=== PATIENT | female | born 1970 | race Caucasian/White ===

== ENCOUNTER → 2017-04-28 | Outpatient (CLI) | payer BC ==
[~2017-04-28] MED LIST: ALBUTEROL0.09 MG/A2 INH; BENTYL10 MG PO; BLADDER MED; CHLORASEPTIC 1177 M1 MM; CLARITIN-D 10 M1 T24 PO; COLACE100 MG PO; DAYPRO600 M1 PO; DECADRON4 M1 PO; DURICEF500 MG PO; FLEXERIL10 MG PO; Fioricet 325 MG1 TAB PO; GABAPENTIN300 MG PO; HYDR12.5C PO; IRRITABLE BOWEL MED; MACROBID100 M1 PO; MEDROL DOSEPAK4 MG PO; NKHM; OXYCODONE5 MG PO; PREDNICOT10 MG PO; PREDNISONE10 MG PO; PROCTOFOAM-HC 11 FOA RC; PYRIDIUM200 MG PO; ROBAXIN500 MG PO; ROBAXIN750 MG PO; ROBITUSSIN AC 110 ML PO; SYNTHROID0.175 MG PO; TRAMADOL HCL50 MG PO; VICODIN 5/500 505 MG PO; VICODIN ES 7501 TAB PO; XIFAXAN550 MG PO; ZITHROMAX Z PA250 MG PO; ZOFRAN ODT4 MG SL
[2017-04-28 13:48] LABS: BASO # 0.1 10*3/uL (0.0-0.1); BASO % 0.8 % (0.0-1.0); EOS # 0.1 10*3/uL (0.0-0.4); EOS % 1.5 % (1.0-4.0); HEMATOCRIT 37.9 % (37.0-47.0); HEMOGLOBIN 12.3 g/dl (12.0-16.0); LYMPH # 2.8 10*3/uL (1.3-4.4); LYMPH % 29.7 % (27.0-41.0); MEAN CELL VOLUME 88.8 fl (81.0-99.0); MEAN CORPUSCULAR HGB 28.8 pg (27.0-31.0); MEAN CORPUSCULAR HGB CONC 32.5 g/dl (33.0-37.0); MEAN PLATELET VOLUME 10.5 fl (9.6-12.3); MONO # 0.7 10*3/uL (0.1-1.0); MONO % 7.9 % (3.0-9.0); NEUT # 5.5 10*3/uL (2.3-7.9); NEUT % 58.9 % (47.0-73.0); PLATELET COUNT AUTOMATED 234 10*3/uL (130-400); RED BLOOD COUNT 4.27 10*6/uL (4.10-5.10); RED CELL DISTRI WIDTH 17.2 % (0-14.5); WHITE BLOOD COUNT 9.3 10*3/uL (4.8-10.8)
[2017-04-28 14:17] LABS: CREATININE 1.18 mg/dL (0.55-1.02); POTASSIUM 4.3 mmol/L (3.5-5.1)
[2017-04-28 14:27] LABS: THYROID STIM HORMONE (HS) 16.8 uIU/ml (0.358-4.75); TOTAL PROTEIN 8.2 gm/dL (6.4-8.2)
== END | disposition home or self-care (01) ==
LOC: LAB 13:04
PROVIDERS: Nurse Practitioner Family
DX: I10 Essential (primary) hypertension (principal); E03.9 Hypothyroidism, unspecified

== ENCOUNTER 2017-09-01 10:19 | Emergency (ER) | payer BC ==
[~2017-09-01] VITALS: Wt 91.2 kg
[2017-09-01] MEDS ORDERED: LISINOPRIL20 MG PO (10:22)
[2017-09-01] MEDS ORDERED: Motrin,Rufen800 MG PO (13:23)
== END 2017-09-01 13:27 | disposition home or self-care (01) ==
LOC: ED 10:19
DX: S93.402A Sprain of unspecified ligament of left ankle, initial encounter (principal); F17.200 Nicotine dependence, unspecified, uncomplicated; Z79.899 Other long term (current) drug therapy; W01.0XXA Fall on same level from slipping, tripping and stumbling without subsequent striking against object, initial encounter; Y93.01 Activity, walking, marching and hiking; Y92.89 Other specified places as the place of occurrence of the external cause; Y99.8 Other external cause status

== ENCOUNTER 2017-11-27 08:43 | Inpatient (IN) | payer BC ==
[~2017-11-27] VITALS: Ht 160 cm; Wt 92.0 kg
[2017-11-27] VITALS (7 sets, daily range): BP systolic 123–151; BP diastolic 73–108
--- NOTE | ~2017-11-27 | PR ---
[place], [place] PROGRESS NOTE NAME: CEDRICK CORNEJO [facility] #: [id number] UNIT #: [id number] ROOM: 411 DOCTOR: GUILLERMINA GREEN MD,DHARMESH BIRTHDATE: [birth year] DOS: 11/29/2017 SUBJECTIVE: She has been comfortably sitting on the chair this morning. The shortness of breath and the cough and wheezing all remains persistent with partial reduction. Denies symptoms of chest pain or hemoptysis. Shortness of breath was still noted with minimal exertion, but decreased at rest. ____ the patient with tachypnea, which was noted previously seemed to be decreased on today's assessment. She denies symptoms of nausea, vomiting, or diarrhea. She was noted with some area of early skin pressure with the use of the BiPAP at the bridge of the nose. The patient denies symptoms of abdominal pain, nausea, vomiting, diarrhea or abdominal pain. Musculoskeletal symptoms without any acute deformities. Skin was noted without any lesions or rashes. Remaining systems were reviewed. They were noted all negative. OBJECTIVE: VITAL SIGNS: Normal temperature, respiratory rate 20, heart rate 89-108, blood pressure 142/74 to 147/85. Intake for the patient is 1600, output is 2200, negative for fluid balance of 520 mL. Pulse ox saturation on 2 liters nasal cannula 98% saturation. HEENT: No acute change. NECK: Supple. CARDIOVASCULAR: S1, S2 is audible. LUNGS: Without any crackles. Expiratory wheezing noted in the lungs bilaterally. ABDOMEN: Soft with moderate obesity. Bowel sounds present. EXTREMITIES: Without any acute edema. MUSCULOSKELETAL: No acute deformities. SKIN: Without lesions or rashes. LABORATORY DATA: Labs assessment for the patient for today's visit. The blood culture of the patient showed no bacterial growth from admission. CBC this morning: WBC count elevated at 21.5, hemoglobin 10, hematocrit 33.2, platelet count 253,000. BMP of the patient's glucose 260. BUN and creatinine was normal. IMPRESSION: 1. The patient who has been currently noted with an acute exacerbation of chronic obstructive pulmonary disease. 2. Hyperglycemia secondary to corticosteroids. 3. Leukocytosis, multifactorial. 4. The patient with respiratory distress, noted to be better from previously. PLAN OF TREATMENT: The patient will be made n.p.o. past midnight for bronchoscopy that will be done tomorrow. In the meantime, continue the BiPAP, use of the nasal strip to prevent the necrosis of the skin because of the pressure from the BiPAP use. Other supportive therapy, plan of management and care plan. Additional treatment changes to be made based on progression of the [place], [place] PROGRESS NOTE NAME: CEDRICK CORNEJO UNIT #: [id number] ROOM: 411 DOCTOR: DHARMESH CLAY MD BIRTHDATE: [birth year] illness. The sliding scale insulin coverage has been ordered because of the hyperglycemia to be done for the patient as well. DHARMESH SARMIENTO MD CM:PNTRANS [id number] 1604 DHARMESH GREEN MD 11/29/17 1603 interface
--- NOTE | ~2017-11-27 | PR ---
[place], [place] PROGRESS NOTE NAME: CEDRICK CORNEJO UNIT #: [id number] ROOM: 411 DOCTOR: DHARMESH CLAY MD BIRTHDATE: [birth year] DOS: 11/30/2017 SUBJECTIVE: She was still noted with severe coughing with intermittent shortness of breath at rest and otherwise noted with minimal exertion, shortness of breath increases. Denies symptoms of chest pain or hemoptysis. Denies symptoms of nausea, vomiting, headache. General weakness, fatigue was noted. She is n.p.o. past midnight for bronchoscopy. Denies any edema or pain of the lower extremities. Remaining systems were reviewed. They were noted all negative. OBJECTIVE: VITAL SIGNS: For the patient this morning, normal temperature, respiratory rate 18-20, heart rate 77-101, blood pressure 114/78-127/69. Pulse oxygen saturation for the patient on 2 liters nasal cannula 96% saturation. HEENT: Head was atraumatic. Eye nonicterus. NECK: Supple and obese. Decreased posterior pharyngeal space, high tongue base. CARDIOVASCULAR: S1, S2 audible. LUNGS: Noted with diffuse reduction in breath sounds with expiratory wheezing without any crackles. ABDOMEN: Noted soft and obese. Bowel sounds present. EXTREMITIES: Without any acute edema. MUSCULOSKELETAL: Without any acute deformity. SKIN: No lesions or rashes. CENTRAL NERVOUS SYSTEM: Cranial nerves 2-12 intact. No focal deficit. LABORATORY DATA: BMP today, normal BUN and creatinine. CBC: WBC count 21.8, hemoglobin 10.5, hematocrit 34.3, platelet count 272,000. IMPRESSION: 1. The patient was noted with persistent ongoing acute exacerbation of chronic obstructive pulmonary disease/bronchial asthma as well suspected with the mucus impaction major airway. 2. History of chronic nicotine abuse. 3. History of obesity. 4. Possible consideration for sleep apnea disorder, current body habitus. PLAN OF MANAGEMENT: Proceed with bronchoscopy as already in progress. Any change in the treatment for the patient if necessary will be done after the bronchoscopy. In the meantime, no other change in treatment will be done. [place], [place] PROGRESS NOTE NAME: CEDRICK CORNEJO UNIT #: [id number] ROOM: 411 DOCTOR: AZIZ DHARMESH GREEN MD BIRTHDATE: [birth year] DHARMESH SARMIENTO MD CM:HIRAM 07 DHARMESH GREEN MD 11/30/178 interface
--- NOTE | ~2017-11-27 | PROC NOTE ---
[place], [place] PROCEDURE NOTE [id number] UN[facility] #: [id number] ROOM: 411 DOCTOR: GUILLERMINA GREEN MD,DHARMESH BIRTHDATE: [birth year] DOS: 11/30/2017 PROCEDURE: Fibrobronchoscopy. PREOPERATIVE DIAGNOSES: Persistent severe cough, wheezing, shortness of breath with maximal medical therapy. POSTOPERATIVE DIAGNOSES: Severe removal of the mucus impaction major airway, greater on the right than the left side. Finding of tracheobronchitis. No endobronchial obstructive lesions. PROCEDURE DESCRIPTION: Informed consent obtained with the patient, she was brought to the OR and placed in supine position. Conscious sedation was administered by the Anesthesia Department. After achieving appropriate sedation, airway introduced into the mouth. Bronchoscope advanced to the airway into laryngeal area. Epiglottis vocal cords were seen. Vocal cord noted yellowish in color moving symmetrically with movements. The bronchoscope advanced to the vocal cord into the tracheal lumen. The tracheal lumen noted with moderate amount of thick mucus secretion for the patient, which were present in the trachea, suctioned out. After that, the garrett was seen. Right upper, right middle, right lower, left upper, lingula and left lower lobe bronchi were all examined. The patient was noted with a large amount of plugs of the mucus, which were noted almost all its subsegment to right lung and then in the left lower lobe. The mucous plug was cleared off with the help of normal saline wash and sent for culture. Postoperative findings were discussed with the patient and has been in the recovery room. No change in treatment at this time, will be otherwise necessary. Cultures were sent to the lab. The procedure well tolerated by the patient without difficulty. DHARMESH SARMIENTO MD CM:PROCNOTE:PROCEDURE NOTE [id number] DHARMESH GREEN MD
--- NOTE | ~2017-11-27 | CON ---
[place], [place] REPORT OF [facility]ULTATION [id number] UN[facility] #: [id number] ROOM: 411 DOCTOR: LAY ADAM DO BIRTHDATE: [birth year] DOS: 11/27/2017 REASON FOR CONSULTATION: Severe sepsis, pneumonitis in a patient with COPD exacerbation and acute respiratory failure with hypoxia. CONSULTATION REQUESTED BY: Hospitalist services. HISTORY OF PRESENT ILLNESS: This is a 47-year-old white female who presented to the ER with worsening shortness of breath and coughing. She states that her symptoms really began to worsen on Thursday and have progressed to the severe state that she is currently in so that she had to seek emergency medical treatment today. She states that she has had symptoms of this nature on and off since April, though she notes that she has not needed hospitalization for these symptoms in the past. She notes her coughing has been so extreme at times that it has caused her to have posttussive emesis. She notes that exertion worsens her respiratory symptoms making her more short of breath and have more severe cough, but she notes that her shortness of breath has persisted at rest now as well. She also notes symptoms of chills, muscle aches and headaches. She is a long time smoker since she was 11 years old and states she has smoked in the range of 3 packs to half pack per day since the age of 11. REVIEW OF SYSTEMS: CONSTITUTIONAL: Reports chills. Denies fevers, denies weight change. HEENT: Denies vision change. Denies hearing loss, denies nasal discharge. Denies ear drainage. Denies blurred vision. Denies eye pain. Denies mouth pain. Denies nose pain. Denies throat pain, denies dysphagia. CARDIOVASCULAR: Reports chest pain with coughing and deep breathing. Denies palpitations. Denies lower extremity edema. Denies diaphoresis. RESPIRATORY: Reports shortness of breath, reports cough. Reports wheezing. Reports dyspnea on exertion. Denies hemoptysis. Denies sputum production. ABDOMEN: Reports nausea, reports vomiting. Denies abdominal pain, denies diarrhea, denies constipation. Denies melena, denies hematochezia. Denies any hematemesis. GENITOURINARY: Denies dysuria, denies hematuria, denies increased frequency, denies urgency. NEUROLOGIC: Denies lightheadedness. Denies dizziness, denies confusion. PSYCHIATRIC: Denies depression, denies anxiety. Denies substance abuse. ENDOCRINE: Denies polydipsia, denies heat intolerance. Denies cold intolerance. SKIN: Denies new rashes, lesions or ulcerations. PAST MEDICAL HISTORY: 1. COPD. 2. Diverticulosis. 3. Hemorrhoids. 4. History of thyroid cancer. 5. Essential hypertension. 6. Migraine headaches. PAST SURGICAL HISTORY: [place], [place] REPORT OF CONSULTATION NAME: CEDRICK CORNEJO UNIT #: [id number] ROOM: [facility] DOCTOR: LAY ADAM DO BIRTHDATE: [birth year] 1. History of adenoidectomy and tonsillectomy. 2. History of sinus surgery. 3. History of bilateral cataract extraction. 4. History of thyroidectomy. 5. History of tubal ligation. SOCIAL HISTORY: The patient is and lives at home. She has 2 children. She denies illicit drug use. Rarely consumes alcohol. She is a 3 to currently half pack a day smoker since the age of 11. FAMILY HISTORY: Father . He had history of hypertension, coronary artery disease, atrial fibrillation, stroke and congestive heart failure. Mother has history of CAD, coronary artery disease and diabetes. HOME MEDICATIONS: Synthroid 250 mcg p.o. daily and lisinopril 20 mg p.o. daily. DRUG ALLERGIES: No known drug allergies. PHYSICAL EXAMINATION: GENERAL: This is a 47-year-old white female currently in respiratory distress, seated in bed. She is 5 feet 3 inches tall, weighs 92 kilograms with a BMI of 35.9. She is responsive and cooperative, alert and awake. HEAD: Normocephalic, atraumatic. EYES: Pupils equal and round and reactive to light. No lesions, no ulcerations, no drainage, nonicteric. ENT: No lesions, no scars, no masses. Nasal mucosa moist. Oropharynx clear. Oral mucosa moist. NECK: Without lesions, without masses, no ulcerations. Trachea is midline. Supple. There is mild cervical lymphadenopathy along the right cervical chain that is tender to palpation. HEART: Tachycardia with a regular rhythm. No gallop, no murmur, no edema in the lower extremities. RESPIRATORY: Shortness of breath at rest and dyspnea on exertion. Harsh cough with some production of sputum, moderate respiratory distress. LUNGS: Diminished and diffusely wheezy bilaterally. No rales or rhonchi appreciated. ABDOMEN: Soft, nontender, nondistended, positive bowel sounds. EXTREMITIES: No clubbing, no cyanosis, no erythema, no edema. NEUROLOGIC: Grossly intact without focal neuro deficits. Sensation grossly intact. PSYCHIATRIC: Good historian. Fair judgment and insight. Good recent and remote memory, exhibits normal mood and affect at this time. SKIN: Warm and dry, no rashes, no ulcerations, no lesions, no tightening. LABORATORY AND DIAGNOSTIC DATA: CBC shows white blood cell count of 9, hemoglobin 12.4, hematocrit 38.6, platelet count 235. CMP shows sodium 137, potassium 3.7, bicarbonate 25, BUN 9, creatinine 1.05, glucose 145, calcium 8 with an albumin of 3.5 and total protein 7.8, total bilirubin 0.2, AST 29, ALT 43, alkaline phosphatase 111. Initial lactic acid was 2.4, elevated. Initial troponin is negative. Blood gases were obtained and show pH of 7.417, slightly [place], [place] REPORT OF CONSULTATION NAME: CEDRICK CORNEJO UNIT #: [id number] ROOM: 411 DOCTOR: LAY ADAM DO BIRTHDATE: [birth year] normal with a pCO2 of 34.2 slightly low, and a pO2 of 71.5 low. Chest x-ray in the ER shows normal size cardiomediastinal silhouette, no consolidation or atelectasis in either lung. No pleural effusions, no pneumothorax and no acute osseous process. Chest CTA was done and shows no pulmonary emboli. There is patchy ground glass nodules versus infiltrate in the right upper lobe, possibly representing pneumonia. IMPRESSION: 1. Acute community-acquired pneumonia, possibly of Gram-negative origin. 2. Acute exacerbation of chronic obstructive pulmonary disease. 3. Acute respiratory failure with hypoxemia. 4. Severe sepsis due to the community-acquired pneumonia. 5. Hypothyroidism. 6. Essential hypertension. 7. Morbid obesity. PLAN OF MANAGEMENT: Continue the use of IV Solu-Medrol 60 mg q.8 hours and IV antibiotics with Rocephin and azithromycin for treatment of community-acquired pneumonia and COPD exacerbation. Continue DuoNeb breathing treatments. Due to the patient's acute respiratory failure with hypoxemia, we will start the patient on BiPAP with IPAP of 12 and an EPAP of 8 and maintain oxygen saturation greater than 92%. The patient will benefit from a bronchoscopy and we will schedule this for Thursday. The patient will need to be n.p.o. after midnight Thursday night into Thursday. Thank you for allowing us to participate in the care of this patient. LAY ADAM DO DHARMESH SARMIENTO MD CM:CONSTR:REPORT OF CONSULTATION 1534 11/27/17 1755 interface
--- NOTE | ~2017-11-27 | PR ---
[place], [place] PROGRESS NOTE NAME: CEDRICK CORNEJO UNIT #: [id number] ROOM: 411 DOCTOR: LAY ADAM DO BIRTHDATE: [birth year] DOS: 12/02/2017 SUBJECTIVE: The patient seen and examined today. She is sitting up at bedside. She notes that she is feeling much, much better and has been ambulating in the halls with much less dyspnea on exertion. She notes that her cough is nearly completely resolved. OBJECTIVE: VITAL SIGNS: At the time of exam, temperature 97.9, pulse 72, respirations 20, blood pressure 154/90. Bedside pulse ox 95% on room air. HEENT: Head is normocephalic, atraumatic. Eyes are nonicteric. NECK: Supple. Nontender. CARDIOVASCULAR: Regular rate and rhythm without any gallops, rubs or murmurs. LUNGS: Very faint expiratory wheeze in the upper lobes bilaterally. No rales or rhonchi. Good inspiratory effort. ABDOMEN: Soft, nontender, obese, bowel sounds present. EXTREMITIES: No edema, cyanosis, clubbing, or erythema noted. NEUROLOGIC: Grossly intact. No focal neuro deficits. Sensation grossly intact. LABORATORY AND DIAGNOSTIC DATA: Blood cultures are negative. Bronchial wash cultures show moderate gram-positive cocci in pairs and chains with few gram-negative bacilli. No fungal elements were seen and overall normal edwige. IMPRESSION: 1. Resolving acute exacerbation of chronic obstructive pulmonary disease with acute tracheobronchitis/pneumonitis. 2. Tobacco abuse. The patient has been counseled on the importance of tobacco cessation. 3. Chronic obesity. 4. Suspected obstructive sleep apnea. PLAN OF TREATMENT: Dr. Sarmiento feels the patient is suitable for discharge today from a pulmonary standpoint. Recommend discharge with prednisone taper and oral antibiotics to finish out a course for treatment of tracheobronchitis/pneumonitis. The patient should follow up with Dr. Sarmiento in his outpatient office within 1-2 weeks. She can be evaluated with a sleep study for possible obstructive sleep apnea and possible need for CPAP requirement at night. LAY ADAM DO [place], [place] PROGRESS NOTE NAME: CEDRICK CORNEJO UNIT #: [id number] ROOM: 411 DOCTOR: LAY ADAM DO BIRTHDATE: [birth year] DHARMESH SARMIENTO MD CM:PNHERNANDEZ [id number] LAY ADAM DO 12/02/17 1236 interface
--- NOTE | ~2017-11-27 | PR ---
[place], [place] PROGRESS NOTE NAME: CEDRICK CORNEJO [facility] #: [id number] UNIT #: [id number] ROOM: 411 DOCTOR: DHARMESH LCAY MD BIRTHDATE: [birth year] DOS: 12/02/2017 SUBJECTIVE: The patient noted comfortable at this time, resting comfortably on the bed with significant further improvement and resolution of the respiratory symptoms were noted at the present time. Coughing has improved significantly, wheezing and shortness of breath, was also improved markedly. OBJECTIVE: VITAL SIGNS: This morning, normal temperature, respiratory rate 20, heart 72, blood pressure is 160/87 to 154/90. The pulse oxygen saturation on 2 liters 100% saturation. HEENT: Chronic moderate obesity. NECK: Supple. CARDIOVASCULAR: S1, S2 audible. LUNGS: The patient was noted without any crackles, rhonchi or wheezing at this time. ABDOMEN: Soft and obese. EXTREMITIES: Without any acute edema. LABORATORY DATA: Cultures of the bronchial washing noted as light growth of yeast and normal edwige. IMPRESSION: 1. The patient with progressive improvement and resolution noted with acute hypoxic respiratory failure as well as acute exacerbation of chronic obstructive pulmonary disease. 2. History of nicotine abuse. 3. Chronic obesity with suspicion of obstructive sleep apnea disorder. PLAN OF TREATMENT: From the pulmonary standpoint, the patient would be considered for possible home discharge for the patient to be followed up in the office. She could receive the tapering dose of prednisone, oral antibiotics and other medical management for COPD as well. [place], [place] PROGRESS NOTE NAME: CEDRICK CORNEJO [facility] #: [id number] UNIT #: [id number] ROOM: 411 DOCTOR: DHARMESH CLAY MD BIRTHDATE: [birth year] DHARMESH SARMIENTO MD CM:HIRAM 1247 0029 DHARMESH GREEN MD 12/03/17 0028 interface
--- NOTE | ~2017-11-27 | PR ---
[place], [place] PROGRESS NOTE NAME: CEDRICK CORNEJO UNIT #: [id number] ROOM: 411 DOCTOR: DHARMESH CLAY MD BIRTHDATE: [birth year] DOS: 12/01/2017 PULMONARY PROGRESS NOTE SUBJECTIVE: The patient continues to show improvement in the respiratory symptoms. The coughing has been noted decreased, but not completely resolved. Shortness breath was still noted on exertion. Bronchoscopy done, a large amount of mucus impaction cleared from the endobronchial tree. The patient has not been noted symptoms of hemoptysis. OBJECTIVE: VITAL SIGNS: Showed normal temperature, respiratory rate 18, heart rate 81, and blood pressure 162/74. The pulse oxygen saturation on 1 liter nasal cannula was 95% saturation. HEENT: On examination, chronic obesity. Head was atraumatic. Eyes nonicterus. NECK: Supple. CARDIOVASCULAR: S1, S2 is audible. LUNGS: The patient was noted without any wheezing or crackles. ABDOMEN: Soft and nontender. Bowel sounds present. EXTREMITIES: Without any acute edema, clubbing, or cyanosis. CENTRAL NERVOUS SYSTEM: The patient noted nonfocal. LABORATORY DATA: Culture of the bronchial washing, preliminary source is normal edwige. ____ was noted as many white blood cells, epithelial cells, moderate gram-positive cocci in chains, and a few gram-negative bacilli. IMPRESSION: 1. Resolving acute exacerbation of chronic obstructive pulmonary disease, acute tracheobronchitis after the bronchoscopy this morning. 2. The patient with a history of past nicotine abuse. 3. Chronic obesity. 4. Suspected obstructive sleep apnea disorder. PLAN OF TREATMENT: The patient will be continued on bronchodilators and oxygen supplementation. Monitor culture results. Reduce the Solu-Medrol dose to 40 mg b.i.d. from today. Possible discharge tomorrow depends on the final culture results. Other supportive therapy, plan of management, and care. [place], [place] PROGRESS NOTE NAME: CEDRICK CORNEJO UNIT #: [id number] ROOM: 411 DOCTOR: DHARMESH CLAY MD BIRTHDATE: [birth year] DHARMESH SARMIENTO MD CM:PNTRANS 1302 DHARMESH GREEN MD 12/02/179 interface
--- NOTE | ~2017-11-27 | EKG ---
[place], [place] ELECTROCARDIOGRAM REPORT NAME: CEDRICK CORNEJO UNIT #: [id number] ROOM: 411 DOCTOR: GUILLERMINA GREEN MD,DHARMESH BIRTHDATE: [birth year] DOS: 11/29/2017 ELECTROCARDIOGRAM REPORT The echocardiogram shows evidence of sinus tachycardia, heart rate of 115 beats per minute. Resting electrocardiogram was noted normal. Nonspecific ST-T changes noted in leads II, III and aVF. DHARMESH SARMIENTO MD CM:EKGRPT:ELECTROCARDIOGRAM REPORT 1259 1307 DHARMESH GREEN MD
--- NOTE | ~2017-11-27 | PR ---
[place], [place] PROGRESS NOTE [id number] UNIT #: [id number] ROOM: 411 DOCTOR: GUILLERMINA GREEN MD,DHARMESH BIRTHDATE: [birth year] DOS: 11/28/2017 SUBJECTIVE: She was noted to have reduction of respiratory distress, has used the BiPAP only a short period of time, this morning using oxygen supplementation. Cough is still noted nonproductive, [id number]. Audible wheezing noted, decreased. Denies symptoms of chest pain, hemoptysis. Denies edema, pain of the lower extremity. Denies symptoms of nausea, vomiting, diarrhea or any abdominal pain. Denies symptoms of hematemesis or melena. Generally weak and fatigued was still noted. OBJECTIVE: VITAL SIGNS: For the patient, which was recorded showed the temperature noted normal, respiratory rate 20-22, heart rate 95-115, blood pressure 135/80-134/75, pulse oxygen saturation 3 liters nasal cannula 92% saturation. HEENT: Chronic obesity. NECK: Supple. Decreased posterior pharyngeal space. EYES: No icterus. Oral mucosa was moist. CARDIOVASCULAR: S1, S2 audible. LUNGS: The patient was noted with persistent reduced breath sounds of the lungs bilateral with diffuse expiratory wheezing, which were noted partially decreased from previous examination. There were no crackles. ABDOMEN: Soft, nontender. Bowel sounds present. EXTREMITIES: Without any acute edema. MUSCULOSKELETAL: Without any acute deformities. LABORATORY DATA: Chest x-ray shows nodular infiltration was noted in the lungs involving the right upper lung, predominantly. There was no significant lymphadenopathy. There was no evidence of pulmonary embolism with a CTA of the chest that was done yesterday. Lymph nodes are noted mildly enlarged, but does not appear to be pathological enlargement. CBC today, WBC count 18.3, hemoglobin 11.3, hematocrit 36.5, platelet count of 48,000, 96% segmented neutrophils. BMP, glucose 185, BUN normal, creatinine was normal. IMPRESSION: 1. The patient who has been currently noted with an ongoing acute severe respiratory distress secondary to possibility of acute pneumonia, which appeared to be nodular right lung with other etiology noninfectious, would be considered unless resolution occur with current medical management. 2. Leukocytosis, multifactorial secondary to corticosteroids. 3. Obstructive sleep apnea disorder. 4. Chronic obesity. 5. History of nicotine dependence. PLAN OF TREATMENT: Continue current antibiotics, bronchodilators, and oxygen supplementation. The dose of corticosteroids will be decreased to 40 mg q.8 hours today. Bronchoscopy planned, to be done on Thursday morning. The consent was discussed. Risk and benefit were discussed. The patient was agreeable for the procedure. N.p.o. past midnight status will be obtained tomorrow. Collect any sputum Gram stain culture. Continuation of the nicotine placement patches. Other supportive therapy, plan of management and care. Additional therapy. [place], [place] PROGRESS NOTE NAME: CEDRICK CORNEJO [facility] UNIT #: [id number] ROOM: 411 DOCTOR: GUILLERMINA GREEN MD,DHARMESH BIRTHDATE: [birth year] Treatment changes will be made based on the progression of the illness. DHARMESH SARMIENTO MD CM:PNTRANS 1146 1425 DHARMESH GREEN MD 11/28/17 1424 interface
--- NOTE | ~2017-11-27 | CON ---
[place], [place] REPORT OF CONSULTATION NAME: CEDRICK CORNEJO [facility] #: [id number] UNIT #: [id number] ROOM: 411 DOCTOR: DHARMESH CLAY MD BIRTHDATE: [birth year] DOS: 11/27/2017 PULMONARY CONSULTATION, EVALUATION, AND MANAGEMENT CONSULTATION REQUESTED BY: Hospitalist service. REASON FOR CONSULTATION: For assessment of current respiratory distress, cough, and others. HISTORY OF PRESENT ILLNESS: This is a 47-year-old female patient, who has been noted ongoing illness with increased respiratory symptom for the past several months at least 6 months. The patient started having increased shortness of breath, coughing, wheezing, and other symptoms. The symptoms have not been resolving. The patient has been taking previous home medications including fkwo-fys-revotev and other medication and failed to respond to the treatment. Symptoms had been described as severely worse that occurred from Thursday. The patient has been admitted to the hospital from the date of 11/27/2017. The patient denies any symptoms of hemoptysis. She does complain of pain with excessive cough. The cough has been noted without any sputum expectoration and appeared to be dry. She was noted with continuous wheezing, which was noted at rest with significant tachypnea noted even at rest. Minimal exertion has been resulting in increased shortness of breath. REVIEW OF SYSTEMS: Completed by the medical scientific officer. PAST MEDICAL HISTORY: Has been reported with 1. History of chronic obstructive pulmonary disease. 2. Chronic nicotine dependence. 3. Diverticulosis. 4. Moderate obesity. 5. History of thyroid cancer. 6. Essential hypertension. 7. History of obstructive sleep apnea disorder, treated with the CPAP. PAST SURGICAL HISTORY: Noted 1. T and A. 2. Sinus surgery. 3. Bilateral cataract extraction. 4. Thyroidectomy for the thyroid cancer. 5. Tubal ligation. SOCIAL HISTORY: She is , has 2 children. The patient was smoking heavily since teenager, 3 packs of cigarettes per day, currently trying to cut down the smoking of cigarettes, using the nicotine patches intermittently, and smoking. The patient taking of the patches at times. Denies any history of alcohol dependence. Denies any occupation-related exposure to any dust or chemicals. FAMILY HISTORY: Father , complications of CVA, coronary artery disease, and atrial fibrillation. Mother is living with history of coronary artery [place], [place] REPORT OF CONSULTATION NAME: CEDRICK CORNEJO UNIT #: [id number] ROOM: 411 DOCTOR: GUILLERMINA GREEN MD,DHARMESH BIRTHDATE: [birth year] disease and diabetes mellitus. HOME MEDICATIONS: Noted as use of 1. Synthroid 250 mcg daily. 2. Lisinopril 20 mg daily. DRUG ALLERGIES: Noted no known drug allergies. PHYSICAL EXAMINATION: GENERAL: This is a 47-year-old female noted with obvious respiratory distress with audible wheezing at the time of the assessment. Height of 5 feet 3 inches, weight of 203 pounds, and BMI 35.9. VITAL SIGNS: Respiratory rate ranging between 26-34. The temperature is normal, heart rate was noted as 125-112, sinus tachycardia, blood pressure 151/96-146/104. The pulse oxygen saturation recorded with nasal cannula supplementation oxygen on 3 liters as 97% saturation. HEENT: On examination, head was atraumatic, chronic moderate obesity. Decreased posterior pharyngeal space. NECK: Supple. CARDIOVASCULAR: S1, S2 is audible. LUNGS: Diffuse reduction in breath sounds, [id number] expiratory wheezing bilaterally. There were no crackles. ABDOMEN: Noted moderate obesity. No tenderness. Bowel sounds present. CENTRAL NERVOUS SYSTEM: Cranial nerves 2-12 intact. No focal deficits. MUSCULOSKELETAL: Without acute deformity. SKIN: No lesions or rashes. LABORATORY DATA: Lactic acid this morning 2.4. CBC this morning: WBC count normal, hemoglobin 12.4, hematocrit 38.6, and platelet count was 235,000. CMP of the patient this morning, glucose 145, BUN 9, and creatinine 1.06. The chest x-ray, one view of the patient noted with prominent pulmonary hilar area, hyperinflation without any gross area of infiltration, and consolidation. Arterial blood gas that I ordered for the patient today was noted on 2 liters during my assessment, pH of 7.41, pCO2 34, and pO2 71.5 on 2 liters. The followup lactic acid at 11:24 was 2.0. IMPRESSION: 1. The patient who has been currently noted with respiratory distress as a result of acute severe exacerbation of chronic obstructive pulmonary disease, possible bronchial asthma, concomitant as well. 2. Acute tracheobronchitis. 3. Rule out hilar lymphadenopathy. 4. Chronic obesity. 5. Lactic acidosis, mostly secondary to current stress, excess use of muscles with tachycardia as well. I do not suspect any evidence of pulmonary embolism. 6. The patient with history of chronic heavy nicotine abuse. 7. History of obstructive sleep apnea disorder, nonadherence with use of CPAP because of current ongoing respiratory symptom, inability to use the CPAP at home as per the patient. 8. History of thyroid cancer, which described to be in remission. [place], [place] REPORT OF CONSULTATION NAME: CEDRICK CORNEJO UNIT #: [id number] ROOM: 411 DOCTOR: GUILLERMINA GREEN MD,DHARMESH BIRTHDATE: [birth year] 9. History of hypothyroidism. PLAN OF MANAGEMENT: At this time, the patient has been getting Solu-Medrol 60 mg q.8 hours, that will be continued. Bronchodilator will be given every 4 hours. She will be ordered the BiPAP, setting of 14/8 to reduce her respiratory distress and support the current respiratory insufficiency. Sputum for Gram stain culture will be obtained. Nicotine replacement patches for the patient as well. Additional treatment changes to be made for the patient based on progression of the illness. Other supportive plan of therapy. CT scan of the chest will be done with intravenous contrast for further assessment. Based on the CT scan of the chest finding, if necessary additional treatment changes will be made. The plan for bronchoscopy hopefully on Thursday as well. Additional treatment changes to be made for this patient as well as necessary with progression of the illness if the patient's respiratory status deteriorate the patient's current medical management. Use the BiPAP on the telemetry floor. She needs to be transferred to ____ unit for potential intubation and mechanical ventilation at that time. Other supportive therapy and plan of management care. Continue usual antibiotics, atypical coverage as well. Supportive care, plan of therapy, management, and plan of treatments. Thanks for allowing me to participate in the care of this patient. DHARMESH SARMIENTO MD CM:CONSTR:REPORT OF CONSULTATION 1553 11/28/17 0346 interface
[~2017-11-27 08:43] MED LIST changes: +LISINOPRIL20 MG PO; +Motrin,Rufen800 MG PO; -SYNTHROID0.175 MG PO; +Synthroid,Lev200 MCG PO
[2017-11-27 09:20] LABS: BASO # 0.1 10*3/uL (0.0-0.1); BASO % 0.7 % (0.0-1.0); EOS # 0.3 10*3/uL (0.0-0.4); EOS % 3.3 % (1.0-4.0); HEMATOCRIT 38.6 % (37.0-47.0); HEMOGLOBIN 12.4 g/dl (12.0-16.0); LYMPH # 1.8 10*3/uL (1.3-4.4); LYMPH % 19.6 % (27.0-41.0); MEAN CELL VOLUME 86.9 fl (81.0-99.0); MEAN CORPUSCULAR HGB 27.9 pg (27.0-31.0); MEAN CORPUSCULAR HGB CONC 32.1 g/dl (33.0-37.0); MEAN PLATELET VOLUME 10.5 fl (9.6-12.3); MONO # 1.1 10*3/uL (0.1-1.0); MONO % 12.2 % (3.0-9.0); NEUT # 5.7 10*3/uL (2.3-7.9); NEUT % 63.8 % (47.0-73.0); PLATELET COUNT AUTOMATED 235 10*3/uL (130-400); RED BLOOD COUNT 4.44 10*6/uL (4.10-5.10); RED CELL DISTRI WIDTH 15.1 % (0-14.5)
[2017-11-27 09:34] LABS: ALBUMIN 3.5 gm/dl (3.1-4.5); ALKALINE PHOSPHATASE 111 U/L (45-117); BUN 9 mg/dl (7-24); CHLORIDE 103 mmol/L (98-107); CREATININE 1.05 mg/dL (0.55-1.02); POTASSIUM 3.7 mmol/L (3.5-5.1); SGOT/AST 29 IU/L (3-35); SGPT/ALT 43 U/L (12-78); SODIUM 137 mmol/L (136-145); TOTAL PROTEIN 7.8 gm/dL (6.4-8.2)
[2017-11-27 12:57] LABS: ABG BASE EXCESS -1.8 mmol/L (-2.0-2.0); ABG HCO3 21.7 mmol/l (22-26); ABG O2 SATURATION 94.7 % (95-97); ARTERIAL BLOOD GAS PCO2 34.2 mmHg (35-45); ARTERIAL BLOOD GAS PH 7.417 (7.35-7.45); ARTERIAL BLOOD GAS PO2 71.5 mmHg (80-90)
[2017-11-28] VITALS: BP 106/65
[2017-11-28 07:18] LABS: HEMATOCRIT 36.5 % (37.0-47.0); HEMOGLOBIN 11.3 g/dl (12.0-16.0); MEAN CORPUSCULAR HGB 27.6 pg (27.0-31.0); PLATELET COUNT AUTOMATED 248 10*3/uL (130-400); RED CELL DISTRI WIDTH 15.5 % (0-14.5); WHITE BLOOD COUNT 18.3 10*3/uL (4.8-10.8)
[2017-11-28 08:00] VITALS: BP 134/75
[2017-11-28 08:03] LABS: BUN 13 mg/dl (7-24); CHLORIDE 108 mmol/L (98-107); CREATININE 0.98 mg/dL (0.55-1.02); PHOSPHOROUS 2.1 mg/dL (2.5-4.9); PLATELET SUFFICIENCY NORMAL (NORMAL); POTASSIUM 4.4 mmol/L (3.5-5.1); SODIUM 139 mmol/L (136-145); TOTAL CELLS COUNTED 100 #CELLS
[2017-11-28 08:09] LABS: THYROID STIM HORMONE (HS) 0.643 uIU/ml (0.358-4.75)
[2017-11-28 08:28] LABS: VITAMIN D, 25-HYDROXY 8.6 ng/mL (30-100)
[2017-11-28 12:00] VITALS: BP 99/61
[2017-11-28 16:00] VITALS: BP 140/81
[2017-11-28 20:00] VITALS: BP 129/78
[2017-11-29] VITALS: BP 134/69
[2017-11-29 06:01] LABS: HEMATOCRIT 33.2 % (37.0-47.0); HEMOGLOBIN 10.1 g/dl (12.0-16.0); MEAN CORPUSCULAR HGB 27.4 pg (27.0-31.0); MEAN CORPUSCULAR HGB CONC 30.4 g/dl (33.0-37.0); MEAN PLATELET VOLUME 11.2 fl (9.6-12.3); PLATELET COUNT AUTOMATED 253 10*3/uL (130-400); RED BLOOD COUNT 3.69 10*6/uL (4.10-5.10); RED CELL DISTRI WIDTH 15.8 % (0-14.5); WHITE BLOOD COUNT 21.5 10*3/uL (4.8-10.8)
[2017-11-29 06:09] LABS: BUN 14 mg/dl (7-24); CHLORIDE 109 mmol/L (98-107); CREATININE 0.88 mg/dL (0.55-1.02); PHOSPHOROUS 2.7 mg/dL (2.5-4.9); POTASSIUM 4.3 mmol/L (3.5-5.1); SODIUM 142 mmol/L (136-145)
[2017-11-29 06:30] LABS: TOTAL CELLS COUNTED 100 #CELLS
[2017-11-29 06:31] LABS: PLATELET SUFFICIENCY NORMAL (NORMAL)
[2017-11-29 08:00] VITALS: BP 147/85
[2017-11-29 12:00] VITALS: BP 143/74
[2017-11-29 16:00] VITALS: BP 136/75
[2017-11-29 20:00] VITALS: BP 136/90
[2017-11-30] VITALS (8 sets, daily range): BP systolic 127–152; BP diastolic 69–91
[2017-11-30 06:22] LABS: HEMATOCRIT 34.3 % (37.0-47.0); HEMOGLOBIN 10.5 g/dl (12.0-16.0); MEAN CELL VOLUME 89.8 fl (81.0-99.0); MEAN CORPUSCULAR HGB 27.5 pg (27.0-31.0); MEAN CORPUSCULAR HGB CONC 30.6 g/dl (33.0-37.0); PLATELET COUNT AUTOMATED 272 10*3/uL (130-400); RED BLOOD COUNT 3.82 10*6/uL (4.10-5.10); RED CELL DISTRI WIDTH 15.8 % (0-14.5); WHITE BLOOD COUNT 21.8 10*3/uL (4.8-10.8)
[2017-11-30 06:25] LABS: BUN 17 mg/dl (7-24); CHLORIDE 107 mmol/L (98-107); CREATININE 0.88 mg/dL (0.55-1.02); POTASSIUM 4.1 mmol/L (3.5-5.1); SODIUM 141 mmol/L (136-145)
[2017-11-30 06:49] LABS: PLATELET SUFFICIENCY NORMAL (NORMAL); TOTAL CELLS COUNTED 100 #CELLS
[2017-12-01] VITALS: BP 160/90
[2017-12-01 08:00] VITALS: BP 162/74
[2017-12-01 12:00] VITALS: BP 149/86
[2017-12-01 16:00] VITALS: BP 129/50
[2017-12-01 16:09] LABS: ACID FAST SPEC PROCESSING Concentration (.)
[2017-12-01 20:00] VITALS: BP 163/86
[2017-12-02] VITALS: BP 163/87
[2017-12-02 08:00] VITALS: BP 154/90
[2017-12-02 12:00] VITALS: BP 139/75
[2017-12-02] MEDS ORDERED: HYCODAN/HYDROMET5 ML PO (13:46)
[2017-12-02] MEDS ORDERED: PREDNISONE10 MG PO (13:46)
[2017-12-02] MEDS ORDERED: VIBRAMYCIN100 MG PO (13:46)
[2017-12-02] MEDS ORDERED: PROAIR HFA8.5 GM INH (13:55)
[2017-12-02] MEDS ORDERED: VITAMIN D350000 UNIT PO (13:55)
== END 2017-12-02 14:14 | disposition home or self-care (01) | DRG 871 ==
LOC: ED 08:43 → 4E 10:07 → EDHOLD 10:07 → 4E 10:10
PROVIDERS: Emergency Medicine; Internal Medicine Critical Care Medicine; Student in an Organized Health Care Education/Training Program
PROC: 0BC38ZZ Extirpation of Matter from Right Main Bronchus, Via Natural or Artificial Opening Endoscopic (ICD-10-PCS; principal; 2017-11-30)
PROC: 0BC88ZZ Extirpation of Matter from Left Upper Lobe Bronchus, Via Natural or Artificial Opening Endoscopic (ICD-10-PCS; principal; 2017-11-30)
PROC: 0BC78ZZ Extirpation of Matter from Left Main Bronchus, Via Natural or Artificial Opening Endoscopic (ICD-10-PCS; principal; 2017-11-30)
PROC: 0BC98ZZ Extirpation of Matter from Lingula Bronchus, Via Natural or Artificial Opening Endoscopic (ICD-10-PCS; principal; 2017-11-30)
PROC: 0BC58ZZ Extirpation of Matter from Right Middle Lobe Bronchus, Via Natural or Artificial Opening Endoscopic (ICD-10-PCS; principal; 2017-11-30)
PROC: 0BC68ZZ Extirpation of Matter from Right Lower Lobe Bronchus, Via Natural or Artificial Opening Endoscopic (ICD-10-PCS; principal; 2017-11-30)
PROC: 0BC48ZZ Extirpation of Matter from Right Upper Lobe Bronchus, Via Natural or Artificial Opening Endoscopic (ICD-10-PCS; principal; 2017-11-30)
PROC: 0BCB8ZZ Extirpation of Matter from Left Lower Lobe Bronchus, Via Natural or Artificial Opening Endoscopic (ICD-10-PCS; principal; 2017-11-30)
PROC: 0BC18ZZ Extirpation of Matter from Trachea, Via Natural or Artificial Opening Endoscopic (ICD-10-PCS; principal; 2017-11-30)
DX: A41.9 Sepsis, unspecified organism (principal); J18.9 Pneumonia, unspecified organism; J96.01 Acute respiratory failure with hypoxia; J44.1 Chronic obstructive pulmonary disease with (acute) exacerbation; J44.0 Chronic obstructive pulmonary disease with (acute) lower respiratory infection; T17.590A Other foreign object in bronchus causing asphyxiation, initial encounter; R65.20 Severe sepsis without septic shock; I10 Essential (primary) hypertension; D72.810 Lymphocytopenia; R07.9 Chest pain, unspecified; E03.9 Hypothyroidism, unspecified; R73.9 Hyperglycemia, unspecified; E83.51 Hypocalcemia; G47.33 Obstructive sleep apnea (adult) (pediatric); G43.909 Migraine, unspecified, not intractable, without status migrainosus; F17.210 Nicotine dependence, cigarettes, uncomplicated; J20.9 Acute bronchitis, unspecified; K57.90 Diverticulosis of intestine, part unspecified, without perforation or abscess without bleeding; E66.01 Morbid (severe) obesity due to excess calories; E83.39 Other disorders of phosphorus metabolism; X58.XXXA Exposure to other specified factors, initial encounter; Y93.89 Activity, other specified; Z71.6 Tobacco abuse counseling; Y92.89 Other specified places as the place of occurrence of the external cause; Y99.8 Other external cause status; Z85.850 Personal history of malignant neoplasm of thyroid; Z98.51 Tubal ligation status; Z98.42 Cataract extraction status, left eye; Z98.41 Cataract extraction status, right eye; Z79.899 Other long term (current) drug therapy; Z68.35 Body mass index [BMI] 35.0-35.9, adult

== ENCOUNTER → 2018-02-09 | Outpatient (CLI) | payer BC ==
[~2018-02-09] MED LIST changes: +HYCODAN/HYDROMET5 ML PO; +PROAIR HFA8.5 GM INH; +VIBRAMYCIN100 MG PO; +VITAMIN D350000 UNIT PO
[2018-02-09 10:58] LABS: BASO # 0.1 10*3/uL (0.0-0.1); BASO % 0.8 % (0.0-1.0); EOS # 0.2 10*3/uL (0.0-0.4); EOS % 1.8 % (1.0-4.0); HEMATOCRIT 39.4 % (37.0-47.0); HEMOGLOBIN 12.2 g/dl (12.0-16.0); LYMPH # 3.2 10*3/uL (1.3-4.4); LYMPH % 31.8 % (27.0-41.0); MEAN CELL VOLUME 86.8 fl (81.0-99.0); MEAN CORPUSCULAR HGB 26.9 pg (27.0-31.0); MEAN PLATELET VOLUME 10.5 fl (9.6-12.3); MONO # 0.8 10*3/uL (0.1-1.0); MONO % 7.9 % (3.0-9.0); NEUT # 5.7 10*3/uL (2.3-7.9); NEUT % 57.4 % (47.0-73.0); PLATELET COUNT AUTOMATED 279 10*3/uL (130-400); RED BLOOD COUNT 4.54 10*6/uL (4.10-5.10); RED CELL DISTRI WIDTH 17.6 % (0-14.5); WHITE BLOOD COUNT 9.9 10*3/uL (4.8-10.8)
[2018-02-09 11:36] LABS: ALBUMIN 3.8 gm/dl (3.1-4.5); BILIRUBIN, DIRECT < 0.1 mg/dL (0.0-0.2); SGOT/AST 25 IU/L (3-35); SGPT/ALT 32 U/L (12-78)
[2018-02-09 11:37] LABS: ALKALINE PHOSPHATASE 98 U/L (45-117); TOTAL PROTEIN 7.6 gm/dL (6.4-8.2)
== END | disposition home or self-care (01) ==
LOC: LAB 10:33
PROVIDERS: Internal Medicine Critical Care Medicine
DX: Z51.81 Encounter for therapeutic drug level monitoring (principal); Z79.899 Other long term (current) drug therapy

== ENCOUNTER → 2018-03-17 | Outpatient (CLI) | payer BC ==
[2018-03-17 15:04] LABS: BASO # 0.1 10*3/uL (0.0-0.1); BASO % 0.8 % (0.0-1.0); EOS # 0.2 10*3/uL (0.0-0.4); EOS % 1.6 % (1.0-4.0); HEMATOCRIT 36.8 % (37.0-47.0); HEMOGLOBIN 11.6 g/dl (12.0-16.0); LYMPH # 2.8 10*3/uL (1.3-4.4); LYMPH % 29.3 % (27.0-41.0); MEAN CORPUSCULAR HGB 27.4 pg (27.0-31.0); MEAN CORPUSCULAR HGB CONC 31.5 g/dl (33.0-37.0); MEAN PLATELET VOLUME 10.8 fl (9.6-12.3); MONO # 0.8 10*3/uL (0.1-1.0); MONO % 7.8 % (3.0-9.0); NEUT # 5.7 10*3/uL (2.3-7.9); NEUT % 59.7 % (47.0-73.0); PLATELET COUNT AUTOMATED 292 10*3/uL (130-400); RED BLOOD COUNT 4.23 10*6/uL (4.10-5.10); RED CELL DISTRI WIDTH 18.2 % (0-14.5); WHITE BLOOD COUNT 9.6 10*3/uL (4.8-10.8)
[2018-03-17 15:15] LABS: ALBUMIN 4.2 gm/dl (3.1-4.5); ALKALINE PHOSPHATASE 102 U/L (45-117); BILIRUBIN, DIRECT < 0.1 mg/dL (0.0-0.2); BUN 10 mg/dl (7-24); CHLORIDE 105 mmol/L (98-107); CHOLESTEROL 305 mg/dL (<200); CREATININE 1.15 mg/dL (0.55-1.02); HDL CHOLESTEROL 40 mg/dl (40-60); LDL CHOLESTEROL 215 mg/dL (9-159); POTASSIUM 3.8 mmol/L (3.5-5.1); SGOT/AST 25 IU/L (3-35); SGPT/ALT 35 U/L (12-78); SODIUM 139 mmol/L (136-145); TOTAL PROTEIN 7.9 gm/dL (6.4-8.2); TRIGLYCERIDES 251 mg/dl (<150); VLDL CHOLESTEROL 50 mg/dL (6-40)
== END | disposition home or self-care (01) ==
LOC: LAB 13:52
PROVIDERS: Internal Medicine Critical Care Medicine
DX: E78.5 Hyperlipidemia, unspecified (principal); E03.9 Hypothyroidism, unspecified; Z79.899 Other long term (current) drug therapy

== ENCOUNTER → 2018-05-20 | Outpatient (CLI) | payer BC ==
[2018-05-20 10:33] LABS: BASO # 0.1 10*3/uL (0.0-0.1); BASO % 0.7 % (0.0-1.0); EOS # 0.2 10*3/uL (0.0-0.4); EOS % 1.9 % (1.0-4.0); HEMATOCRIT 39.1 % (37.0-47.0); HEMOGLOBIN 12.2 g/dl (12.0-16.0); LYMPH # 3.1 10*3/uL (1.3-4.4); LYMPH % 36.3 % (27.0-41.0); MEAN CELL VOLUME 87.5 fl (81.0-99.0); MEAN CORPUSCULAR HGB 27.3 pg (27.0-31.0); MEAN CORPUSCULAR HGB CONC 31.2 g/dl (33.0-37.0); MONO # 0.7 10*3/uL (0.1-1.0); MONO % 8.3 % (3.0-9.0); NEUT # 4.4 10*3/uL (2.3-7.9); NEUT % 52.1 % (47.0-73.0); PLATELET COUNT AUTOMATED 275 10*3/uL (130-400); RED BLOOD COUNT 4.47 10*6/uL (4.10-5.10); RED CELL DISTRI WIDTH 17.2 % (0-14.5); WHITE BLOOD COUNT 8.5 10*3/uL (4.8-10.8)
[2018-05-20 10:36] LABS: ALBUMIN 3.8 gm/dl (3.1-4.5); BILIRUBIN, DIRECT 0.1 mg/dL (0.0-0.2); TOTAL PROTEIN 7.7 gm/dL (6.4-8.2)
[2018-05-20 10:37] LABS: ALBUMIN 3.8 gm/dl (3.1-4.5); ALKALINE PHOSPHATASE 112 U/L (45-117); BUN 13 mg/dl (7-24); CHLORIDE 106 mmol/L (98-107); CHOLESTEROL 223 mg/dL (<200); CREATININE 1.14 mg/dL (0.55-1.02); HDL CHOLESTEROL 27 mg/dl (40-60); LDL CHOLESTEROL 136 mg/dL (9-159); POTASSIUM 4.1 mmol/L (3.5-5.1); SGOT/AST 17 IU/L (3-35); SGPT/ALT 32 U/L (12-78); SODIUM 140 mmol/L (136-145); TOTAL PROTEIN 7.7 gm/dL (6.4-8.2); TRIGLYCERIDES 298 mg/dl (<150); VLDL CHOLESTEROL 60 mg/dL (6-40)
== END | disposition home or self-care (01) ==
LOC: LAB 09:49
PROVIDERS: Internal Medicine Critical Care Medicine; Nurse Practitioner Family
DX: E78.5 Hyperlipidemia, unspecified (principal); Z79.899 Other long term (current) drug therapy

== ENCOUNTER → 2018-06-22 | Outpatient (CLI) | payer BC ==
[2018-06-22 12:18] LABS: BASO # 0.1 10*3/uL (0.0-0.1); BASO % 0.6 % (0.0-1.0); EOS # 0.2 10*3/uL (0.0-0.4); EOS % 2.1 % (1.0-4.0); HEMATOCRIT 37.8 % (37.0-47.0); LYMPH # 2.9 10*3/uL (1.3-4.4); LYMPH % 37.2 % (27.0-41.0); MEAN CELL VOLUME 87.1 fl (81.0-99.0); MEAN CORPUSCULAR HGB 27.6 pg (27.0-31.0); MEAN CORPUSCULAR HGB CONC 31.7 g/dl (33.0-37.0); MEAN PLATELET VOLUME 10.9 fl (9.6-12.3); MONO # 0.7 10*3/uL (0.1-1.0); MONO % 8.2 % (3.0-9.0); NEUT # 4.1 10*3/uL (2.3-7.9); NEUT % 51.5 % (47.0-73.0); PLATELET COUNT AUTOMATED 243 10*3/uL (130-400); RED BLOOD COUNT 4.34 10*6/uL (4.10-5.10); RED CELL DISTRI WIDTH 16.8 % (0-14.5); WHITE BLOOD COUNT 7.9 10*3/uL (4.8-10.8)
[2018-06-22 12:39] LABS: ALBUMIN 3.6 gm/dl (3.1-4.5); ALKALINE PHOSPHATASE 104 U/L (45-117); BILIRUBIN, DIRECT < 0.1 mg/dL (0.0-0.2); SGOT/AST 25 IU/L (3-35); SGPT/ALT 37 U/L (12-78); TOTAL PROTEIN 7.2 gm/dL (6.4-8.2)
== END | disposition home or self-care (01) ==
LOC: LAB 11:50
PROVIDERS: Internal Medicine Critical Care Medicine
DX: Z79.899 Other long term (current) drug therapy (principal)

== ENCOUNTER 2018-09-13 19:02 | Inpatient (IN) | payer BC ==
[~2018-09-13] VITALS: Ht 160 cm; Wt 92.1 kg
--- NOTE | ~2018-09-13 | EKG ---
[place], [place] ELECTROCARDIOGRAM REPORT NAME: CEDRICK CORNEJO UNIT #: [id number] ROOM: [facility] DOCTOR: SUDEEP DRAFT REPORT BIRTHDATE: [birth year] [facility] Test Date: 2018-09-13 Test Time: 19:09:44 Pat Name: CEDRICK CORNEJO Department: ICU Room: [facility] Gender: F Historic Sites Supervisor: KRYSTAL : 1970 Requested By: RUPINDER HER Order Number: [id number] Reading MD: Ladarius Montiel MD Measurements Intervals [place] Rate: 94 P: 48 [place]: 173 QRS: -36 QRSD: 136 T: 94 QT: 425 QTc: 532 Interpretive Statements Sinus rhythm LBBB with LAD Electronically Signed On 09-14-2018 6:52:03 PST by Ladarius Montiel MD CM:EKGRPT:ELECTROCARDIOGRAM REPORT [id number] RUPINDER OTTO DRAFT REPORT RUPINDER HER DO
--- NOTE | ~2018-09-13 | EKG ---
[place], [place] ELECTROCARDIOGRAM REPORT NAME: CEDRICK CORNEJO UNIT #: [id number] ROOM: [facility] DOCTOR: SUDEEP DRAFT REPORT BIRTHDATE: [birth year] [facility] Test Date: 2018-09-13 Test Time: 22:52:39 Pat Name: CEDRICK CORNEJO Department: Room: [facility] Gender: F Customs House Broker: Bern Thorne : 1970 Requested By: RUPINDER HER Order Number: [id number] Reading MD: Ladarius Montiel MD Measurements Intervals [place] Rate: 70 P: 36 [place]: 169 QRS: 33 QRSD: 83 T: 6 QT: 470 QTc: 508 Interpretive Statements Sinus rhythm Borderline prolonged QT interval Baseline wander in lead(s) V3 Compared to earlier ECG, LBBB is no longer present Electronically Signed On 09-14-2018 6:54:08 PST by Ladarius Montiel MD CM:EKGRPT:ELECTROCARDIOGRAM REPORT 0654 RUPINDER OTTO DRAFT REPORT RUPINDER HER DO
--- NOTE | ~2018-09-13 | EKG ---
[place], [place] ELECTROCARDIOGRAM REPORT NAME: CEDRICK CORNEJO UNIT #: [id number] ROOM: [facility] DOCTOR: SUDEEP DRAFT REPORT BIRTHDATE: [birth year] [facility] Test Date: 2018-09-13 Test Time: 19:19:34 Pat Name: CEDRICK CORNEJO Department: ICU Room: [facility] Gender: F Non Clinical Advisor: KRYSTAL : 1970 Requested By: RUPINDER HER Order Number: [id number] Reading MD: Ladarius Montiel MD Measurements Intervals [place] Rate: 97 P: 38 RI: 162 QRS: -34 QRSD: 137 T: 85 QT: 402 QTc: 511 Interpretive Statements Sinus rhythm Left bundle branch block Baseline wander in lead(s) V6 No change from earlier ECG this date Electronically Signed On 09-14-2018 6:52:33 PST by Ladarius Montiel MD CM:EKGRPT:ELECTROCARDIOGRAM REPORT [id number] RUPINDER OTTO DRAFT REPORT RUPINDER HER DO
[2018-09-13 19:05] VITALS: BP 170/103
[2018-09-13 19:22] LABS: BASO # 0.1 10*3/uL (0.0-0.1); BASO % 0.8 % (0.0-1.0); EOS # 0.2 10*3/uL (0.0-0.4); EOS % 1.6 % (1.0-4.0); HEMOGLOBIN 13.6 g/dl (12.0-16.0); LYMPH # 3.5 10*3/uL (1.3-4.4); LYMPH % 27.5 % (27.0-41.0); MEAN CORPUSCULAR HGB 27.5 pg (27.0-31.0); MEAN CORPUSCULAR HGB CONC 32.4 g/dl (33.0-37.0); MEAN PLATELET VOLUME 11.2 fl (9.6-12.3); MONO # 0.8 10*3/uL (0.1-1.0); MONO % 6.5 % (3.0-9.0); PLATELET COUNT AUTOMATED 300 10*3/uL (130-400); RED BLOOD COUNT 4.94 10*6/uL (4.10-5.10); WHITE BLOOD COUNT 12.7 10*3/uL (4.8-10.8)
--- NOTE | 2018-09-13 19:29 | NUR ---
PER DR HER HOLD NITRO
[2018-09-13 19:33] LABS: ACT PARTIAL THROMBO TIME 24.9 SECONDS (20.8-31.5); INTERNATIONAL NORM RATIO 0.9 (2.0-3.5)
[2018-09-13] MEDS ORDERED: PRINIVIL20 M1 PO (19:35)
[2018-09-13 19:36] VITALS: BP 149/96
[2018-09-13 19:40] LABS: ALBUMIN 3.7 gm/dl (3.1-4.5); ALKALINE PHOSPHATASE 104 U/L (45-117); BUN 20 mg/dl (7-24); CHLORIDE 104 mmol/L (98-107); CREATININE 1.44 mg/dL (0.55-1.02); POTASSIUM 5.3 mmol/L (3.5-5.1); SGOT/AST 79 IU/L (3-35); SGPT/ALT 54 U/L (12-78); SODIUM 135 mmol/L (136-145); TOTAL PROTEIN 8.2 gm/dL (6.4-8.2)
[2018-09-13 19:41] LABS: TROPONIN I < 0.015 ng/ml (<0.045)
--- NOTE | 2018-09-13 19:57 | NUR ---
DR HER SPOKE WITH DR GASPAR FROM [facility] PT IS GOING TO BE ADMITTED HERE THEN TRANSFERRED TO [facility] IN THE MORNING OR STRESS TEST WHATEVER THEY SEE FIT PT IS AWARE OF THE PLAN
[2018-09-13 20:32] VITALS: BP 131/84; BP 131/94
--- NOTE | 2018-09-13 20:37 | NUR ---
PT STATES SHE IS FEELING MUCH BETTER AFTER HEPARIN WAS GIVEN
[2018-09-13 21:30] VITALS: BP 145/93
--- NOTE | 2018-09-13 21:30 | NUR ---
A 48, admitted to ICCU, under the services of LUIS Ernandez DO with a diagnosis of CHEST PAIN. Chief complaint is CHEST PAIN. Patient arrived via stretcher from ER. Monitor applied. Initial assessment completed. Vital signs taken and recorded. LUIS ERNANDEZ DO notified of admission to the unit. Orders received. See assessment for past medical history, medications and allergies. Patient and/or family oriented to unit. [facility]U visitation policy reviewed. Clothing/patient valuable form completed. SHRUTHI LUCIO
--- NOTE | 2018-09-13 22:22 | NUR ---
CARDIOLOGY NOTIFIED BY ER OF CONSULT PRIOR TO ARRIVAL TO FLOOR. ECHO IN AM. TED DONIS RN
--- NOTE | 2018-09-13 22:23 | NUR ---
NORCO GIVEN AT 2219 ORDERED FOR LEG CRAMPS
[2018-09-14] VITALS: BP 123/65
--- NOTE | 2018-09-14 01:03 | NUR ---
PT. STATES NORCO EFFECTIVE FOR LEG CRAMPS. ZOFRAN GIVEN FOR COMPLAINTS OF NAUSEA.
--- NOTE | 2018-09-14 02:00 | NUR ---
PT. STATED ZOFRAN EFFECTIVE FOR NAUSEA.
--- NOTE | 2018-09-14 02:42 | NUR ---
PT. SLEEPING, ZOFRAN EFFECTIVE FOR NAUSEA.
[2018-09-14 04:00] VITALS: BP 152/88
[2018-09-14 05:14] LABS: BASO # 0.1 10*3/uL (0.0-0.1); BASO % 0.9 % (0.0-1.0); EOS # 0.3 10*3/uL (0.0-0.4); EOS % 2.6 % (1.0-4.0); HEMATOCRIT 41.2 % (37.0-47.0); LYMPH # 3.8 10*3/uL (1.3-4.4); LYMPH % 35.1 % (27.0-41.0); MEAN CELL VOLUME 86.9 fl (81.0-99.0); MEAN CORPUSCULAR HGB 27.4 pg (27.0-31.0); MEAN CORPUSCULAR HGB CONC 31.6 g/dl (33.0-37.0); MEAN PLATELET VOLUME 10.8 fl (9.6-12.3); MONO # 0.8 10*3/uL (0.1-1.0); MONO % 6.9 % (3.0-9.0); NEUT # 5.9 10*3/uL (2.3-7.9); PLATELET COUNT AUTOMATED 240 10*3/uL (130-400); RED BLOOD COUNT 4.74 10*6/uL (4.10-5.10); RED CELL DISTRI WIDTH 17.2 % (0-14.5); WHITE BLOOD COUNT 10.9 10*3/uL (4.8-10.8)
[2018-09-14 05:34] LABS: ALBUMIN 3.2 gm/dl (3.1-4.5); CREATININE 1.28 mg/dL (0.55-1.02); FREE T4 0.2 ng/dl (0.76-1.46); PHOSPHOROUS 4.7 mg/dL (2.5-4.9)
[2018-09-14 05:38] LABS: POTASSIUM 4.2 mmol/L (3.5-5.1)
[2018-09-14 05:41] LABS: ACT PARTIAL THROMBO TIME 99.9 SECONDS (20.8-31.5)
[2018-09-14 07:13] LABS: VITAMIN D, 25-HYDROXY 8.2 ng/mL (30-100)
--- NOTE | 2018-09-14 07:20 | NUR ---
Shift chart check completed.24 HR chart check completed.
[2018-09-14 08:00] VITALS: BP 136/80
--- NOTE | 2018-09-14 08:00 | NUR ---
Sustainability Consultant in to talk to patient. Patient states lives at home with her . There are basement steps in the home. Physician: Dr. Todd Wright Pharmacy: [facility] Home health services: none Patient's level of ADLs: INDEPENDENT Patient has working utilities: yes DME: c-pap Follow-up physician's appointment after d/c: will be made by the hospitalist nurse director upon discharge Does patient want to access PORTAL?: no Discharge plan discussed with patient. She lives at home with her . She is independent in her ADLs and ambulation. Discussed home health care services and she denies any home needs at this time. When medically stable she will be discharged to home. REUBEN AGUILAR
[2018-09-14] MEDS ORDERED: CALCIUM500 M1 PO (08:23)
[2018-09-14] MEDS ORDERED: VITAMIN D32000 UNI1 PO (08:23)
--- NOTE | 2018-09-14 08:24 | NUR ---
ON ASSESSMENT PATIENT IS RESTING EASILY WITH NO VOICED COMPLAINTS OF PAIN OR SHORTNESS OF BREATH. IV FLUIDS CONTINUE. MEDS RECONCILED/CLARIFIED WITH HER. HEPARIN DRIP CONTINUES AT 9UNITS/KG/HR. IV FLUIDS CONTINUE. PT AWARE OF NPO STATUS UNTIL SEEN BY CARDIOLOGY. ECHO BEING DONE AT THE BEDSIDE.
--- NOTE | 2018-09-14 10:20 | NUR ---
DR DOS SANTOS IN.
[2018-09-14] MEDS ORDERED: ATORVASTATIN CA80 M1 PO (10:47)
[2018-09-14] MEDS ORDERED: METOPROLOL SUCC25 M2 PO (10:47)
--- NOTE | 2018-09-14 10:53 | NUR ---
DR DOS SANTOS HAS VISITED. PLANS ARE UNDERWAY FOR TRANSFER TO [facility]. HER MORNING MEDS WITH ENOUGH WATER TO SWALLOW THEM.
--- NOTE | 2018-09-14 11:19 | NUR ---
NITROGLYCERING DRIP WAS STARTED AT 10MCG/MIN.
--- NOTE | 2018-09-14 11:20 | NUR ---
PT CLAIMS CHEST "LIGHTENING UP" SINCE INCREASING NITRO DRIP. DR COLLADO HAS VISITED.
--- NOTE | 2018-09-14 11:23 | NUR ---
PT HAD HER HAND ON HER CHEST, WHEN QUESTIONED SHE'S HAVING SOME CHEST DISCOMFORT. NITRO INCREASED TO 20MCG/MIN AND NASAL O2 APPLIED AT 2L/MIN. AT THE BEDSIDE.
[2018-09-14 11:36] LABS: THYROID STIM HORMONE (HS) 80.4 uIU/ml (0.358-4.75)
[2018-09-14 11:59] VITALS: BP 125/77
--- NOTE | 2018-09-14 12:13 | NUR ---
REPORT TO THE PLASTICS REPAIRER.
== END 2018-09-14 12:13 | disposition other institution (70) | DRG 313 ==
LOC: ED 19:02 → ICCU 20:53
PROVIDERS: Emergency Medicine; Family Medicine; ADMIT Internal Medicine
DX: R07.89 Other chest pain (principal); N17.0 Acute kidney failure with tubular necrosis; R65.10 Systemic inflammatory response syndrome (SIRS) of non-infectious origin without acute organ dysfunction; E87.1 Hypo-osmolality and hyponatremia; I25.110 Atherosclerotic heart disease of native coronary artery with unstable angina pectoris; E78.5 Hyperlipidemia, unspecified; G43.909 Migraine, unspecified, not intractable, without status migrainosus; E66.9 Obesity, unspecified; J44.9 Chronic obstructive pulmonary disease, unspecified; K21.9 Gastro-esophageal reflux disease without esophagitis; R74.0 Nonspecific elevation of levels of transaminase and lactic acid dehydrogenase [LDH]; R00.0 Tachycardia, unspecified; E55.9 Vitamin D deficiency, unspecified; I44.7 Left bundle-branch block, unspecified; E11.65 Type 2 diabetes mellitus with hyperglycemia; E83.41 Hypermagnesemia; K57.90 Diverticulosis of intestine, part unspecified, without perforation or abscess without bleeding; F17.210 Nicotine dependence, cigarettes, uncomplicated; I10 Essential (primary) hypertension; Z98.41 Cataract extraction status, right eye; Z98.42 Cataract extraction status, left eye; Z98.51 Tubal ligation status; Z82.49 Family history of ischemic heart disease and other diseases of the circulatory system; Z83.3 Family history of diabetes mellitus; Z82.3 Family history of stroke; Z85.850 Personal history of malignant neoplasm of thyroid; Z71.6 Tobacco abuse counseling; Z95.1 Presence of aortocoronary bypass graft; Z68.35 Body mass index [BMI] 35.0-35.9, adult

== ENCOUNTER 2018-09-22 13:39 | Inpatient (IN) | payer BC ==
[~2018-09-22] VITALS: Ht 175.3 cm; Wt 117.9 kg
--- NOTE | ~2018-09-22 | EKG ---
[place], [place] ELECTROCARDIOGRAM REPORT NAME: CEDRICK CORNEJO UNIT #: [id number] ROOM: 516 DOCTOR: SUDEEP DRAFT REPORT BIRTHDATE: [birth year] [facility] Test Date: 2018-09-22 Test Time: 14:27:59 Pat Name: CEDRICK CORNEJO Department: Room: 516 Gender: F Candy Catcher: TADEO : 1970 Requested By: CRSITIAN MEDINA Order Number: [id number] Reading MD: Quincy Parmar MD Measurements Intervals [place] Rate: 84 P: 44 CT: 160 QRS: 16 QRSD: 90 T: -3 QT: 391 QTc: 463 Interpretive Statements Sinus rhythm Borderline T abnormalities, inferior leads Compared to ECG 09/13/2018 22:52:39 T-wave abnormality now present Left bundle-branch block no longer present Electronically Signed On 09-23-2018 8:23:57 PST by Quincy Parmar MD CM:EKGRPT:ELECTROCARDIOGRAM REPORT [id number] 0823 CRISTIAN OTTO DRAFT REPORT CRISTIAN MEDINA DO
--- NOTE | ~2018-09-22 | EKG ---
[place], [place] ELECTROCARDIOGRAM REPORT NAME: CEDRICK CORNEJO UNIT #: [id number] ROOM: 516 DOCTOR: SUDEEP DRAFT REPORT BIRTHDATE: [birth year] [facility] Test Date: 2018-09-22 Test Time: 18:48:12 Pat Name: CEDRICK CORNEJO Department: Room: 516 1 Gender: F Slot Machine Key Person: TADEO : 1970 Requested By: MISHEL STANTON Order Number: [id number] Reading MD: Quincy Parmar MD Measurements Intervals [place] Rate: 66 P: 14 [place]: 166 QRS: 29 QRSD: 83 T: 3 QT: 427 QTc: 448 Interpretive Statements Sinus rhythm Low voltage, precordial leads Borderline T abnormalities, inferior leads Compared to ECG 09/13/2018 22:52:39 Low QRS voltage now present T-wave abnormality now present Left bundle-branch block no longer present Electronically Signed On 09-23-2018 8:24:07 PST by Quincy Parmar MD CM:EKGRPT:ELECTROCARDIOGRAM REPORT [id number] MISHEL STANTON EPIPHANY DRAFT REPORT MISHEL STANTON
--- NOTE | ~2018-09-22 | EKG ---
[place], [place] ELECTROCARDIOGRAM REPORT NAME: CEDRICK CORNEJO UNIT #: [id number] ROOM: 516 DOCTOR: SUDEEP DRAFT REPORT BIRTHDATE: [birth year] [facility] Test Date: 2018-09-23 Test Time: 00:55:43 Pat Name: CEDRICK CORNEJO Department: Room: 51 1 Gender: F Dual Rate Dealer: TADEO : 1970 Requested By: JAKE BOYCE Order Number: [id number] Reading MD: Quincy Parmar MD Measurements Intervals [place] Rate: 73 P: 8 [place]: 151 QRS: 39 QRSD: 88 T: -1 QT: 413 QTc: 456 Interpretive Statements Sinus rhythm Borderline T abnormalities, inferior leads Compared to ECG 09/13/2018 22:52:39 T-wave abnormality now present Left bundle-branch block no longer present Electronically Signed On 09-23-2018 8:24:23 PST by Quincy Parmar MD CM:EKGRPT:ELECTROCARDIOGRAM REPORT [id number] 0824 JAKE BOYCE MD [facility] EPIPHANY DRAFT REPORT JAKE BOYCE MD [facility]
--- NOTE | ~2018-09-22 | EKG ---
[place], [place] ELECTROCARDIOGRAM REPORT NAME: CEDRICK CORNEJO UNIT #: [id number] ROOM: 516 DOCTOR: SUDEEP DRAFT REPORT BIRTHDATE: [birth year] [facility] Test Date: 2018-09-23 Test Time: 11:18:23 Pat Name: CEDRICK CORNEJO Department: Room: 516 1 Gender: F Road Cutter: Laura Rodas : 1970 Requested By: SHRUTHI SORIANO Order Number: [id number] Reading MD: Quincy Parmar MD Measurements Intervals [place] Rate: 82 P: 54 [place]: 149 QRS: 41 QRSD: 90 T: 3 QT: 382 QTc: 446 Interpretive Statements Sinus rhythm Compared to ECG 09/23/2018 00:55:43 T-wave abnormality no longer present Electronically Signed On 09-27-2018 12:53:20 PST by Quincy Parmar MD CM:EKGRPT:ELECTROCARDIOGRAM REPORT [id number] SHRUTHI OTTO DRAFT REPORT SHRUTHI SORIANO DO
--- NOTE | ~2018-09-22 | CON ---
[place], [place] REPORT OF CONSULTATION [id number] UNIT #: [id number] ROOM: 516 DOCTOR: ELIDIA COUCH MD BIRTHDATE: [birth year] DOS: 09/24/2018 HISTORY OF PRESENT ILLNESS: This is a 48-year-old -[place]izen [place] woman with a history of newly diagnosed diabetes mellitus, essential hypertension, dyslipidemia, obesity and she has had bilateral cataract extraction and lens implantation, thyroidectomy and previously left bundle branch block, thyroidectomy was done for thyroid cancer. 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 She has had exertional chest pain for the last 2 months or so and it had been occurring on a daily basis. When she rests, the feeling goes away. She also notices her heart beating fast when she walks, but no dizziness or loss of consciousness. Yesterday, while working here, she felt lightheaded and had weakness and chest pain. She did not pass out. She had taken isosorbide mononitrate about 3 hours prior to this episode. At that time, she had no PND, orthopnea or swelling of the lower extremities. HOME MEDICATIONS: Include lovastatin 40 daily, levothyroxine 200 mcg daily, Imdur 30 q.a.m. She also takes calcium and vitamin D3 and ProAir HFA. ALLERGIES: She has no drug allergies. PHYSICAL EXAMINATION: GENERAL: This is a patient who is a very pleasant, alert. She is moderately obese. She is not tachypneic. There is no thyromegaly or finger clubbing. VITAL SIGNS: Temperature is 98.3, pulse is 72, blood pressure 138/84. NECK: Normal JVP. AJR is negative. There is no carotid bruit. HEART: There is no cardiomegaly, no murmurs were present. EXTREMITIES: She had excellent pedal pulses and no edema of the lower extremities. RESPIRATORY: Lungs were clear to percussion and auscultation, reveals mildly reduced breath sounds with hardly any adventitious sounds. LABORATORY DATA: Several ECGs showed normal sinus rhythm and a normal pattern. Troponin I levels have been normal. She had a diagnostic heart catheterization done on the of this month, i.e., about a week ago, which showed EF of 60% and 25% stenosis in the left anterior descending artery. IMPRESSION: I believe this patient has microvascular angina and she has all the predisposing factors for this, namely obesity, smoking, diabetes mellitus, dyslipidemia and hypertension. Treatment is usually pretty tough and difficult, but I think lifestyle modification is very important. She has already quit smoking and she needs to be exercising on a regular basis as this tends to decrease the incidence of angina. Additionally, she will be started on carvedilol 6.25 mg b.i.d. because of heart rate that goes up considerably when she gets up and starts walking [place], [place] REPORT OF CONSULTATION NAME: CEDRICK CORNEJO UNIT #: [id number] ROOM: 516 DOCTOR: IZA SHAY,ELIDIA BIRTHDATE: [birth year] around. Isosorbide mononitrate should be continued. If she has any significant headaches that usually subside within 2-3 days of continuous use, at a later date she may want to attempt the use of ranolazine. I discussed this with the resident. I thank you on behalf of Dr. Parmar for this consult. ELIDIA COUCH MD CM:CONSTR:REPORT OF CONSULTATION 1159 09/25/18 0919 interface
--- NOTE | ~2018-09-22 | EKG ---
[place], [place] ELECTROCARDIOGRAM REPORT NAME: CEDRICK CORNEJO UNIT #: [id number] ROOM: 516 DOCTOR: SUDEEP DRAFT REPORT BIRTHDATE: [birth year] [facility] Test Date: 2018-09-22 Test Time: 21:44:02 Pat Name: CEDRICK CORNEJO Department: Room: 51 1 Gender: F Computer Operations Specialist: Wilma Barnes : 1970 Requested By: MISHEL STANTON Order Number: [id number] Reading MD: Quincy Parmar MD Measurements Intervals [place] Rate: 77 P: 51 NV: 174 QRS: 42 QRSD: 87 T: -18 QT: 398 QTc: 451 Interpretive Statements Sinus rhythm Borderline T abnormalities, inferior leads Compared to ECG 09/13/2018 22:52:39 T-wave abnormality now present Left bundle-branch block no longer present Electronically Signed On 09-23-2018 8:24:14 PST by Quincy Parmar MD CM:EKGRPT:ELECTROCARDIOGRAM REPORT [id number] 0824 MISHEL STANTON EPIPHANY DRAFT REPORT MISHEL STANTON
[~2018-09-22 13:39] MED LIST changes: +ATORVASTATIN CA80 M1 PO; +CALCIUM500 M1 PO; +METOPROLOL SUCC25 M2 PO; +PRINIVIL20 M1 PO; +VITAMIN D32000 UNI1 PO
[2018-09-22 13:40] VITALS: BP 106/76
[2018-09-22 15:22] LABS: BASO # 0.1 10*3/uL (0.0-0.1); BASO % 0.9 % (0.0-1.0); EOS # 0.2 10*3/uL (0.0-0.4); EOS % 1.5 % (1.0-4.0); HEMATOCRIT 35.6 % (37.0-47.0); HEMOGLOBIN 11.3 g/dl (12.0-16.0); LYMPH # 1.9 10*3/uL (1.3-4.4); LYMPH % 18.5 % (27.0-41.0); MEAN CELL VOLUME 86.4 fl (81.0-99.0); MEAN CORPUSCULAR HGB 27.4 pg (27.0-31.0); MEAN CORPUSCULAR HGB CONC 31.7 g/dl (33.0-37.0); MEAN PLATELET VOLUME 10.7 fl (9.6-12.3); MONO # 0.8 10*3/uL (0.1-1.0); MONO % 7.2 % (3.0-9.0); NEUT # 7.4 10*3/uL (2.3-7.9); NEUT % 71.4 % (47.0-73.0); PLATELET COUNT AUTOMATED 237 10*3/uL (130-400); RED BLOOD COUNT 4.12 10*6/uL (4.10-5.10); RED CELL DISTRI WIDTH 17.3 % (0-14.5); WHITE BLOOD COUNT 10.4 10*3/uL (4.8-10.8)
[2018-09-22 15:31] LABS: ACT PARTIAL THROMBO TIME 25.1 SECONDS (20.8-31.5)
[2018-09-22 15:39] LABS: ALBUMIN 3.6 gm/dl (3.1-4.5); ALKALINE PHOSPHATASE 102 U/L (45-117); BUN 17 mg/dl (7-24); CHLORIDE 105 mmol/L (98-107); CREATININE 1.28 mg/dL (0.55-1.02); LIPASE 230 U/L (73-393); POTASSIUM 3.8 mmol/L (3.5-5.1); SGOT/AST 32 IU/L (3-35); SGPT/ALT 44 U/L (12-78); SODIUM 139 mmol/L (136-145); TOTAL PROTEIN 7.6 gm/dL (6.4-8.2); TROPONIN I < 0.015 ng/ml (<0.045)
[2018-09-22 16:30] VITALS: BP 103/59
[2018-09-22 18:15] VITALS: BP 138/74
[2018-09-22 18:25] VITALS: BP 138/74
[2018-09-22 18:59] VITALS: BP 138/74
[2018-09-22] MEDS ORDERED: IMDUR SA30 MG PO (19:04)
[2018-09-22] MEDS ORDERED: CRESTOR40 M1 PO (19:05)
[2018-09-22 19:54] LABS: CPK 676 U/L (26-192)
[2018-09-22 19:58] LABS: TROPONIN I < 0.015 ng/ml (<0.045)
[2018-09-22 20:00] VITALS: BP 114/48
[2018-09-23] VITALS: BP 102/50
[2018-09-23 01:52] LABS: CPK 601 U/L (26-192); TROPONIN I < 0.015 ng/ml (<0.045)
[2018-09-23 08:06] LABS: BASO # 0.1 10*3/uL (0.0-0.1); BASO % 0.7 % (0.0-1.0); EOS # 0.3 10*3/uL (0.0-0.4); EOS % 2.8 % (1.0-4.0); HEMOGLOBIN 11.4 g/dl (12.0-16.0); LYMPH # 2.9 10*3/uL (1.3-4.4); LYMPH % 28.8 % (27.0-41.0); MEAN CELL VOLUME 86.3 fl (81.0-99.0); MEAN CORPUSCULAR HGB 27.3 pg (27.0-31.0); MEAN CORPUSCULAR HGB CONC 31.7 g/dl (33.0-37.0); MEAN PLATELET VOLUME 10.9 fl (9.6-12.3); MONO # 0.8 10*3/uL (0.1-1.0); MONO % 7.7 % (3.0-9.0); NEUT % 59.6 % (47.0-73.0); PLATELET COUNT AUTOMATED 224 10*3/uL (130-400); RED BLOOD COUNT 4.17 10*6/uL (4.10-5.10); RED CELL DISTRI WIDTH 17.2 % (0-14.5)
[2018-09-23 08:20] LABS: ALBUMIN 3.4 gm/dl (3.1-4.5); CREATININE 1.17 mg/dL (0.55-1.02); PHOSPHOROUS 3.3 mg/dL (2.5-4.9); POTASSIUM 4.4 mmol/L (3.5-5.1); TOTAL PROTEIN 7.1 gm/dL (6.4-8.2)
[2018-09-23 09:45] VITALS: BP 150/78
[2018-09-23 12:00] VITALS: BP 133/75
[2018-09-23 16:00] VITALS: BP 145/82
[2018-09-23 20:00] VITALS: BP 128/77
[2018-09-24] VITALS: BP 122/66
[2018-09-24 08:00] VITALS: BP 81/41
[2018-09-24 08:01] VITALS: BP 138/84
[2018-09-24 09:02] LABS: CREATININE 1.22 mg/dL (0.55-1.02); POTASSIUM 4.7 mmol/L (3.5-5.1)
[2018-09-24 12:00] VITALS: BP 150/88
[2018-09-24 16:00] VITALS: BP 150/79
[2018-09-24 20:00] VITALS: BP 135/83
[2018-09-25] VITALS: BP 106/69
[2018-09-25 07:43] LABS: BASO # 0.1 10*3/uL (0.0-0.1); BASO % 0.7 % (0.0-1.0); EOS # 0.2 10*3/uL (0.0-0.4); EOS % 2.8 % (1.0-4.0); HEMATOCRIT 36.3 % (37.0-47.0); HEMOGLOBIN 11.3 g/dl (12.0-16.0); LYMPH # 1.8 10*3/uL (1.3-4.4); LYMPH % 21.7 % (27.0-41.0); MEAN CELL VOLUME 87.1 fl (81.0-99.0); MEAN CORPUSCULAR HGB 27.1 pg (27.0-31.0); MEAN CORPUSCULAR HGB CONC 31.1 g/dl (33.0-37.0); MEAN PLATELET VOLUME 10.7 fl (9.6-12.3); MONO # 0.7 10*3/uL (0.1-1.0); NEUT # 5.3 10*3/uL (2.3-7.9); NEUT % 65.1 % (47.0-73.0); PLATELET COUNT AUTOMATED 229 10*3/uL (130-400); RED BLOOD COUNT 4.17 10*6/uL (4.10-5.10); RED CELL DISTRI WIDTH 17.2 % (0-14.5); WHITE BLOOD COUNT 8.1 10*3/uL (4.8-10.8)
[2018-09-25 07:54] LABS: ALBUMIN 3.3 gm/dl (3.1-4.5); CREATININE 1.21 mg/dL (0.55-1.02); PHOSPHOROUS 3.8 mg/dL (2.5-4.9); POTASSIUM 4.4 mmol/L (3.5-5.1); TOTAL PROTEIN 7.2 gm/dL (6.4-8.2)
[2018-09-25 08:00] VITALS: BP 151/84; BP 164/98
[2018-09-25] MEDS ORDERED: CARVEDILOL6.25 MG PO (12:33)
[2018-09-25] MEDS ORDERED: ISOSORBIDE MONO10 MG PO (12:33)
[2018-09-25] MEDS ORDERED: ASPIRIN CHEWABL81 M1 PO (12:33)
[2019-02-20] MEDS ORDERED: NAPROSYN500 MG PO (19:18)
== END 2018-09-25 13:42 | disposition home or self-care (01) | DRG 312 ==
LOC: ED 13:39 → EDHOLD 17:17 → 5E 17:17
PROVIDERS: Emergency Medicine; Internal Medicine; Internal Medicine Cardiovascular Disease; ADMIT Internal Medicine
DX: R55 Syncope and collapse (principal); G43.909 Migraine, unspecified, not intractable, without status migrainosus; R11.2 Nausea with vomiting, unspecified; I10 Essential (primary) hypertension; E11.65 Type 2 diabetes mellitus with hyperglycemia; R79.82 Elevated C-reactive protein (CRP); K57.90 Diverticulosis of intestine, part unspecified, without perforation or abscess without bleeding; J44.9 Chronic obstructive pulmonary disease, unspecified; F17.210 Nicotine dependence, cigarettes, uncomplicated; I20.8 Other forms of angina pectoris; Z96.1 Presence of intraocular lens; E66.9 Obesity, unspecified; E78.5 Hyperlipidemia, unspecified; E55.9 Vitamin D deficiency, unspecified; Z86.19 Personal history of other infectious and parasitic diseases; Z71.6 Tobacco abuse counseling; Z85.850 Personal history of malignant neoplasm of thyroid; Z98.42 Cataract extraction status, left eye; Z98.41 Cataract extraction status, right eye; Z98.51 Tubal ligation status; Z82.49 Family history of ischemic heart disease and other diseases of the circulatory system; Z83.3 Family history of diabetes mellitus; Z82.3 Family history of stroke; Z79.899 Other long term (current) drug therapy; Z68.37 Body mass index [BMI] 37.0-37.9, adult

== ENCOUNTER 2019-03-18 00:34 | Emergency (ER) | payer OTHER, BC ==
[~2019-03-18] VITALS: Ht 160 cm; Wt 93.4 kg
[~2019-03-18 00:34] MED LIST changes: +ASPIRIN CHEWABL81 M1 PO; +CARVEDILOL6.25 MG PO; +CRESTOR40 M1 PO; +IMDUR SA30 MG PO; +ISOSORBIDE MONO10 MG PO; +NAPROSYN500 MG PO
== END 2019-03-18 02:17 | disposition home or self-care (01) ==
LOC: ED 00:34
DX: S20.211A Contusion of right front wall of thorax, initial encounter (principal); R51 Headache; F17.210 Nicotine dependence, cigarettes, uncomplicated; Z79.899 Other long term (current) drug therapy; Z79.82 Long term (current) use of aspirin; Y04.2XXA Assault by strike against or bumped into by another person, initial encounter; Y93.89 Activity, other specified; Y92.238 Other place in hospital as the place of occurrence of the external cause; Y99.8 Other external cause status

== ENCOUNTER → 2019-04-04 | Outpatient (CLI) | payer BC ==
[~2019-04-04] MED LIST changes: +NORCO 5-325 TA1 EACH PO; +ZOFRAN4 MG PO
== END | disposition home or self-care (01) ==
LOC: ORTHO 01:01
DX: D16.22 Benign neoplasm of long bones of left lower limb (principal)

== ENCOUNTER → 2019-04-21 | Day surgery (SDC) | payer BC ==
[2019-04-14 13:11] VITALS: BP 140/90
[2019-04-21] VITALS (7 sets, daily range): BP systolic 154–174; BP diastolic 86–102
[~2019-04-21] VITALS: Ht 160 cm; Wt 92.1 kg
== END | disposition home or self-care (01) ==
LOC: SDC 04-14 13:15
DX: S83.242A Other tear of medial meniscus, current injury, left knee, initial encounter (principal); S83.282A Other tear of lateral meniscus, current injury, left knee, initial encounter; M94.262 Chondromalacia, left knee; I10 Essential (primary) hypertension; K21.9 Gastro-esophageal reflux disease without esophagitis; E66.9 Obesity, unspecified; Z68.35 Body mass index [BMI] 35.0-35.9, adult; F17.210 Nicotine dependence, cigarettes, uncomplicated; Z79.899 Other long term (current) drug therapy; Z98.890 Other specified postprocedural states; Z85.9 Personal history of malignant neoplasm, unspecified; Z82.49 Family history of ischemic heart disease and other diseases of the circulatory system; Z83.3 Family history of diabetes mellitus

== ENCOUNTER → 2019-07-29 | Outpatient (CLI) | payer BC | END | disposition home or self-care (01) | LOC: ORTHO 01:13 | DX: M17.12 Unilateral primary osteoarthritis, left knee (principal) ==

== ENCOUNTER → 2019-09-13 | Outpatient (CLI) | payer BC | END | disposition home or self-care (01) | LOC: ORTHO 02:09 | DX: M79.605 Pain in left leg (principal) ==

== ENCOUNTER 2019-10-30 19:07 | Emergency (ER) | payer BC ==
[~2019-10-30] VITALS: Ht 160 cm; Wt 96.2 kg
[2019-10-30 20:41] LABS: BASO # 0.1 10*3/uL (0.0-0.1); EOS # 0.2 10*3/uL (0.0-0.4); EOS % 1.9 % (1.0-4.0); HEMATOCRIT 40.2 % (37.0-47.0); HEMOGLOBIN 12.5 g/dl (12.0-16.0); LYMPH # 2.5 10*3/uL (1.3-4.4); LYMPH % 29.3 % (27.0-41.0); MEAN CELL VOLUME 90.7 fl (81.0-99.0); MEAN CORPUSCULAR HGB 28.2 pg (27.0-31.0); MEAN CORPUSCULAR HGB CONC 31.1 g/dl (33.0-37.0); MEAN PLATELET VOLUME 11.1 fl (9.6-12.3); MONO # 0.6 10*3/uL (0.1-1.0); NEUT # 5.2 10*3/uL (2.3-7.9); NEUT % 60.3 % (47.0-73.0); PLATELET COUNT AUTOMATED 243 10*3/uL (130-400); RED BLOOD COUNT 4.43 10*6/uL (4.10-5.10); RED CELL DISTRI WIDTH 16.5 % (0-14.5); WHITE BLOOD COUNT 8.6 10*3/uL (4.8-10.8)
[2019-10-30 20:55] LABS: ALBUMIN 3.7 gm/dl (3.1-4.5); CREATININE 1.27 mg/dL (0.55-1.02); POTASSIUM 3.7 mmol/L (3.5-5.1); TOTAL PROTEIN 7.4 gm/dL (6.4-8.2); URIC ACID 7.3 mg/dL (2.6-6.0)
[2019-10-30 21:23] LABS: BILIRUBIN NEGATIVE (NEGATIVE); BLOOD NEGATIVE (NEGATIVE); CLARITY CLEAR (CLEAR); COLOR YELLOW (YELLOW); GLUCOSE NEGATIVE (NEGATIVE); KETONE NEGATIVE (NEGATIVE); LEUKO ESTERASE NEGATIVE (NEGATIVE); NITRITE NEGATIVE (NEGATIVE); UROBILINOGEN 0.2 E.U./dl (0.2-1.0)
[2019-10-30 21:24] LABS: BACTERIA 1+
== END 2019-10-31 | disposition home or self-care (01) ==
LOC: ED 19:07
PROVIDERS: Emergency Medicine
DX: M10.9 Gout, unspecified (principal); R60.0 Localized edema; I10 Essential (primary) hypertension; J44.9 Chronic obstructive pulmonary disease, unspecified; E78.5 Hyperlipidemia, unspecified; G43.909 Migraine, unspecified, not intractable, without status migrainosus; E66.9 Obesity, unspecified; Z79.82 Long term (current) use of aspirin; Z79.899 Other long term (current) drug therapy; Z68.30 Body mass index [BMI] 30.0-30.9, adult; Z87.891 Personal history of nicotine dependence

== ENCOUNTER → 2019-11-02 | Outpatient (CLI) | payer BC ==
[2019-11-02 14:28] LABS: ALBUMIN 4.2 gm/dl (3.1-4.5); ALKALINE PHOSPHATASE 110 U/L (45-117); BILIRUBIN, DIRECT < 0.1 mg/dL (0.0-0.2); BUN 14 mg/dl (7-24); CHLORIDE 107 mmol/L (98-107); CHOLESTEROL 331 mg/dL (<200); CREATININE 1.24 mg/dL (0.55-1.02); FREE T4 0.21 ng/dl (0.76-1.46); HDL CHOLESTEROL 36 mg/dl (40-60); POTASSIUM 3.8 mmol/L (3.5-5.1); SGOT/AST 52 IU/L (3-35); SGPT/ALT 77 U/L (12-78); SODIUM 140 mmol/L (136-145); TOTAL PROTEIN 7.6 gm/dL (6.4-8.2); TRIGLYCERIDES 440 mg/dl (<150)
== END | disposition home or self-care (01) ==
LOC: LAB 13:20
PROVIDERS: Internal Medicine
DX: I10 Essential (primary) hypertension (principal); E55.9 Vitamin D deficiency, unspecified; E78.5 Hyperlipidemia, unspecified; E03.9 Hypothyroidism, unspecified; C73 Malignant neoplasm of thyroid gland

== ENCOUNTER → 2019-11-09 | Outpatient (CLI) | payer BC | END | disposition home or self-care (01) | LOC: MRI 12:39 | DX: S83.242A Other tear of medial meniscus, current injury, left knee, initial encounter (principal); D16.22 Benign neoplasm of long bones of left lower limb; M17.12 Unilateral primary osteoarthritis, left knee; M25.462 Effusion, left knee; X58.XXXA Exposure to other specified factors, initial encounter; Y93.89 Activity, other specified; Y92.89 Other specified places as the place of occurrence of the external cause; Y99.8 Other external cause status ==

== ENCOUNTER 2019-11-22 16:52 | Inpatient (IN) | payer BC ==
[~2019-11-22] VITALS: Ht 160 cm; Wt 102.1 kg
[2019-11-22 16:59] VITALS: BP 183/120
[2019-11-22 17:53] LABS: BASO # 0.1 10*3/uL (0.0-0.1); BASO % 1.1 % (0.0-1.0); EOS # 0.3 10*3/uL (0.0-0.4); EOS % 2.9 % (1.0-4.0); HEMATOCRIT 42.1 % (37.0-47.0); HEMOGLOBIN 13.9 g/dl (12.0-16.0); LYMPH # 2.7 10*3/uL (1.3-4.4); LYMPH % 25.5 % (27.0-41.0); MEAN CELL VOLUME 89.4 fl (81.0-99.0); MEAN CORPUSCULAR HGB 29.5 pg (27.0-31.0); MEAN PLATELET VOLUME 11.1 fl (9.6-12.3); MONO # 0.6 10*3/uL (0.1-1.0); MONO % 5.6 % (3.0-9.0); NEUT # 6.7 10*3/uL (2.3-7.9); NEUT % 63.9 % (47.0-73.0); PLATELET COUNT AUTOMATED 242 10*3/uL (130-400); RED BLOOD COUNT 4.71 10*6/uL (4.10-5.10); RED CELL DISTRI WIDTH 17.2 % (0-14.5); WHITE BLOOD COUNT 10.4 10*3/uL (4.8-10.8)
[2019-11-22 18:04] LABS: CLARITY CLEAR (CLEAR); COLOR STRAW (YELLOW)
[2019-11-22 18:05] LABS: BILIRUBIN NEGATIVE (NEGATIVE); BLOOD NEGATIVE (NEGATIVE); GLUCOSE NEGATIVE (NEGATIVE); KETONE NEGATIVE (NEGATIVE); LEUKO ESTERASE NEGATIVE (NEGATIVE); NITRITE NEGATIVE (NEGATIVE); SPECIFIC GRAVITY 1.005 (1.005-1.030); UROBILINOGEN 0.2 E.U./dl (0.2-1.0)
[2019-11-22 18:10] LABS: ALBUMIN 3.9 gm/dl (3.1-4.5); ALKALINE PHOSPHATASE 122 U/L (45-117); BUN 14 mg/dl (7-24); CHLORIDE 105 mmol/L (98-107); CREATININE 1.59 mg/dL (0.55-1.02); LIPASE 194 U/L (73-393); POTASSIUM 3.6 mmol/L (3.5-5.1); SGOT/AST 129 IU/L (3-35); SGPT/ALT 169 U/L (12-78); SODIUM 138 mmol/L (136-145); TOTAL PROTEIN 7.8 gm/dL (6.4-8.2)
[2019-11-22 18:12] LABS: BACTERIA TRACE
[2019-11-22 18:13] LABS: TROPONIN I < 0.015 ng/ml (<0.045)
[2019-11-22 19:42] VITALS: BP 165/90
--- NOTE | 2019-11-22 20:03 | NUR ---
I have tried to contact the floor 2 times and nurse is in with another pt in isolation at this time, will call back when done.
[2019-11-22 20:20] VITALS: BP 140/60
--- NOTE | 2019-11-22 20:20 | NUR ---
A 49, admitted to 5E, under the services of IVANNA Melton DO with a diagnosis of SUSPECTED COVID-19, DYSPNEA, ABNORMAL EKG. Chief complaint is COUGH, SORE THROAT, FEVER, CHEST PAIN W/. EXERTION. Patient arrived via ambulatory from ER. Monitor applied. Initial assessment completed. Vital signs taken and recorded. IVANNA MELTON DO notified of admission to the unit. Orders received. See assessment for past medical history, medications and allergies. Patient and/or family oriented to unit. visitation policy reviewed. Clothing/patient valuable form completed. RED HUYNH
--- NOTE | 2019-11-22 21:11 | NUR ---
RENAN JAVED WITH INFECTIONS DISEASE IN ROOM WITH PATIENT.
--- NOTE | 2019-11-22 21:23 | NUR ---
PER IRVING GONZALEZ RN, PATIENT WAS SWABBED FOR COVID-19. STATES SAMPLE TO BE SENT TO [facility]. RENAN LUCHO JAVED AWARE.
--- NOTE | 2019-11-22 21:39 | NUR ---
DR. SARMIENTO CONSULTED. NO NEW ORDERS AT THIS TIME.
[2019-11-22] MEDS ORDERED: LISINOPRIL40 MG PO (21:46)
--- NOTE | 2019-11-22 21:47 | NUR ---
DR. DURBIN AWARE MED REC UP TO DATE.
[2019-11-23] VITALS: BP 131/77; BP 132/40
[2019-11-23 05:55] LABS: ALBUMIN 3.7 gm/dl (3.1-4.5); CREATININE 1.3 mg/dL (0.55-1.02); POTASSIUM 3.7 mmol/L (3.5-5.1)
[2019-11-23 05:57] LABS: BASO # 0.1 10*3/uL (0.0-0.1); BASO % 1.1 % (0.0-1.0); EOS # 0.3 10*3/uL (0.0-0.4); EOS % 3.2 % (1.0-4.0); HEMATOCRIT 41.1 % (37.0-47.0); LYMPH # 2.8 10*3/uL (1.3-4.4); LYMPH % 30.6 % (27.0-41.0); MEAN CELL VOLUME 90.7 fl (81.0-99.0); MEAN CORPUSCULAR HGB 28.7 pg (27.0-31.0); MEAN CORPUSCULAR HGB CONC 31.6 g/dl (33.0-37.0); MEAN PLATELET VOLUME 11.7 fl (9.6-12.3); MONO # 0.6 10*3/uL (0.1-1.0); NEUT # 5.2 10*3/uL (2.3-7.9); NEUT % 57.3 % (47.0-73.0); PLATELET COUNT AUTOMATED 220 10*3/uL (130-400); RED BLOOD COUNT 4.53 10*6/uL (4.10-5.10); RED CELL DISTRI WIDTH 17.3 % (0-14.5)
[2019-11-23 08:00] VITALS: BP 144/79
--- NOTE | 2019-11-23 08:15 | NUR ---
PT RESTING IN BED. VSS. 95% ON ROOM AIR. ASSESSMENT COMPLETE. NO COMPLAINTS PT JUST STATES SHE FEELS SHE DOESN'T HAVE MUCH ENERGY AND JUST WANTS TO SLEEP. CALL LIGHT WITHIN REACH. WILL CONTINUE TO MONITOR.
--- NOTE | 2019-11-23 09:00 | NUR ---
NOTIFIED PTS MEDS NEED RECONCILED.
--- NOTE | 2019-11-23 10:30 | NUR ---
Business Rules Analyst spoke to patient via phone. Patient states lives at home with her . There are basement steps in the home. Physician: Dr. Todd Wright Pharmacy: [facility] Home health services: none Patient's level of ADLs: INDEPENDENT Patient has working utilities: yes DME: c-pap Follow-up physician's appointment after d/c: will be made by the hospitalist nurse director upon discharge Does patient want to access PORTAL?: no Discharge plan discussed with patient. She lives at home with her . She is independent in her ADLs and ambulation. Discussed home health care services and she denies any home needs at this time. When medically stable she will be discharged to home. She states she drove herself here and plans to drive herself home. REUBEN AGUILAR
[2019-11-23 12:00] VITALS: BP 152/82
--- NOTE | 2019-11-23 15:30 | NUR ---
PTS RAPID COVID TEST CAME BACK NEGATIVE. PT TRANSFERRED TO 4TH FLOOR AT THIS TIME WITH THIS RN. PT RESTING IN BED WITH NO COMPLAINTS AT THIS TIME. RESPS EASY AND REGULAR. CALL LIGHT WITHIN REACH. WILL CONTINUE TO MONITOR.
[2019-11-23 16:00] VITALS: BP 159/94
--- NOTE | 2019-11-23 16:03 | NUR ---
PT REQUESTING SOMETHING FOR ACID REFULX. TUMS GIVEN PER REQUEST. WILL CHECK EFFECTIVENESS.
--- NOTE | 2019-11-23 17:00 | NUR ---
PT STATES TUMS WERE EFFECTIVE. WILL CONTINUE TO MONITOR.
--- NOTE | 2019-11-23 17:28 | NUR ---
PT COMPLAINS OF A HEADACHE. MEDICATED WITH PRN TYLENOL ORDERED. WILL CHECK EFFECTIVENESS. CALL LIGHT WITHIN REACH.
[2019-11-23 20:00] VITALS: BP 146/88; BP 152/100
[2019-11-24] VITALS: BP 131/77
[2019-11-24 08:00] VITALS: BP 129/64; BP 130/60
--- NOTE | 2019-11-24 09:41 | NUR ---
PT RESTING IN BED. NO DISTRESS NOTED/ WILL CONT TO MONITOR
--- NOTE | 2019-11-24 09:58 | NUR ---
Spoke to patient. Discussed home care needs and she denies any home needs. Instructed to self quarantine and she verbalized an understanding. When medically stable she will be discharged to home.
[2019-11-24 12:00] VITALS: BP 123/76
[2019-11-24] MEDS ORDERED: LISINOPRIL40 MG PO (12:18)
--- NOTE | 2019-11-24 12:50 | NUR ---
Discharge instructions reviewed with patient/family. Patient receptive and verbalizes understanding. Follow-up care arranged. Written instructions given to patient/family. BRENDEN MARTINEZ
== END 2019-11-24 14:06 | disposition home or self-care (01) | DRG 682 ==
LOC: ED 16:52 → 4E 18:36 → EDHOLD 18:36 → 5E 18:36 → 4E 11-23 14:44
PROVIDERS: Internal Medicine; Physician Assistant; ADMIT Internal Medicine
DX: N17.0 Acute kidney failure with tubular necrosis (principal); J18.9 Pneumonia, unspecified organism; J44.0 Chronic obstructive pulmonary disease with (acute) lower respiratory infection; F17.210 Nicotine dependence, cigarettes, uncomplicated; E66.9 Obesity, unspecified; E55.9 Vitamin D deficiency, unspecified; Z20.828 Contact with and (suspected) exposure to other viral communicable diseases; E78.5 Hyperlipidemia, unspecified; R94.5 Abnormal results of liver function studies; K57.90 Diverticulosis of intestine, part unspecified, without perforation or abscess without bleeding; G47.33 Obstructive sleep apnea (adult) (pediatric); Z96.1 Presence of intraocular lens; G43.909 Migraine, unspecified, not intractable, without status migrainosus; R74.0 Nonspecific elevation of levels of transaminase and lactic acid dehydrogenase [LDH]; I44.7 Left bundle-branch block, unspecified; I10 Essential (primary) hypertension; Z85.850 Personal history of malignant neoplasm of thyroid; Z86.19 Personal history of other infectious and parasitic diseases; Z98.51 Tubal ligation status; Z98.42 Cataract extraction status, left eye; Z98.41 Cataract extraction status, right eye; Z82.49 Family history of ischemic heart disease and other diseases of the circulatory system; Z82.3 Family history of stroke; Z79.82 Long term (current) use of aspirin; Z79.899 Other long term (current) drug therapy; Z68.39 Body mass index [BMI] 39.0-39.9, adult; Z83.3 Family history of diabetes mellitus

== ENCOUNTER → 2020-05-07 | Outpatient (CLI) | payer BC ==
[~2020-05-07] MED LIST changes: +LISINOPRIL40 MG PO
== END | disposition home or self-care (01) ==
LOC: RAD 14:00
PROVIDERS: ATTEND Orthopaedic Surgery Sports Medicine
DX: M50.30 Other cervical disc degeneration, unspecified cervical region (principal); M47.812 Spondylosis without myelopathy or radiculopathy, cervical region; M51.34 Other intervertebral disc degeneration, thoracic region; M25.78 Osteophyte, vertebrae; M51.36 Other intervertebral disc degeneration, lumbar region; M47.814 Spondylosis without myelopathy or radiculopathy, thoracic region; M47.816 Spondylosis without myelopathy or radiculopathy, lumbar region; D16.9 Benign neoplasm of bone and articular cartilage, unspecified; Z98.890 Other specified postprocedural states

== ENCOUNTER 2020-05-21 15:15 | Inpatient (IN) | payer BC ==
[~2020-05-21] VITALS: Ht 160 cm; Wt 102.5 kg
[2020-05-21 15:38] LABS: BASO # 0.1 10*3/uL (0.0-0.1); BASO % 0.6 % (0.0-1.0); EOS # 0.3 10*3/uL (0.0-0.4); EOS % 2.3 % (1.0-4.0); HEMATOCRIT 41.4 % (37.0-47.0); LYMPH # 2.8 10*3/uL (1.3-4.4); LYMPH % 22.7 % (27.0-41.0); MEAN CELL VOLUME 87.5 fl (81.0-99.0); MEAN CORPUSCULAR HGB 27.3 pg (27.0-31.0); MEAN CORPUSCULAR HGB CONC 31.2 g/dl (33.0-37.0); MEAN PLATELET VOLUME 10.4 fl (9.6-12.3); MONO # 0.9 10*3/uL (0.1-1.0); MONO % 7.1 % (3.0-9.0); NEUT # 8.3 10*3/uL (2.3-7.9); NEUT % 66.5 % (47.0-73.0); PLATELET COUNT AUTOMATED 271 10*3/uL (130-400); RED BLOOD COUNT 4.73 10*6/uL (4.10-5.10); RED CELL DISTRI WIDTH 17.1 % (0-14.5); WHITE BLOOD COUNT 12.4 10*3/uL (4.8-10.8)
[2020-05-21 15:40] VITALS: BP 151/105
[2020-05-21 15:52] LABS: ACT PARTIAL THROMBO TIME 26.9 SECONDS (20.0-32.1)
--- NOTE | 2020-05-21 15:52 | NUR ---
PT LAYING ON COT. SOB. MD AWARE OF STATUS. WILL CONTINUE TO MONITOR.
[2020-05-21 15:54] LABS: ALBUMIN 3.6 gm/dl (3.1-4.5); ALKALINE PHOSPHATASE 136 U/L (45-117); BUN 10 mg/dl (7-24); CHLORIDE 107 mmol/L (98-107); CREATININE 1.09 mg/dL (0.55-1.02); POTASSIUM 3.5 mmol/L (3.5-5.1); SGOT/AST 72 IU/L (3-35); SGPT/ALT 75 U/L (12-78); SODIUM 135 mmol/L (136-145); TOTAL PROTEIN 7.5 gm/dL (6.4-8.2)
[2020-05-21 15:56] LABS: TROPONIN I < 0.015 ng/ml (<0.045)
[2020-05-21 16:00] VITALS: BP 155/90
[2020-05-21 16:10] VITALS: BP 127/65
--- NOTE | 2020-05-21 16:13 | NUR ---
RT AT BEDSIDE AT THIS TIME. DUONEB TX BEING ADMINISTERED. WILL CONTINUE TO MONITOR.
--- NOTE | 2020-05-21 16:19 | NUR ---
JUAN DANIEL CARRENO. AT BEDSIDE. PT DENIES NEEDS AT THIS TIME.
[2020-05-21 16:35] LABS: ABG BASE EXCESS 1.3 mmol/L (-2.0-2.0); ARTERIAL BLOOD GAS PH 7.437 (7.35-7.45)
--- NOTE | 2020-05-21 16:48 | NUR ---
PT TO REST ROOM AT THIS TIME. ALL OTHER NEEDS MET. WILL CONTINUE TO MONITOR.
--- NOTE | 2020-05-21 17:00 | NUR ---
PT ON ROOM AIR AT THIS TIME. STATES THAT SHE DOES NOT FEEL SHE NEEDS O2 AT THIS TIME. WILL CONTINUE TO MONITOR.
[2020-05-21 17:25] VITALS: BP 173/98
--- NOTE | 2020-05-21 17:32 | NUR ---
FLOOR RN CONTACTED. STATES BED NOT MADE. REQUESTING 10 MIN TO PREPARE.
[2020-05-21 18:00] VITALS: BP 112/64; BP 168/76
--- NOTE | 2020-05-21 18:00 | NUR ---
A 50, admitted to 5E, under the services of FLORIDA Sanders DO with a diagnosis of PNEUMONITIS D/T ACQUIRED TOXOPLASMOSIS,SEPSIS. Chief complaint is SHORTNESS OF BREATH COUPLE DAYS. Patient arrived via bed from ER. Monitor applied. Initial assessment completed. Vital signs taken and recorded. FLORIDA SANDERS DO notified of admission to the unit. Orders received. See assessment for past medical history, medications and allergies. Patient and/or family oriented to unit. [address] visitation policy reviewed. Clothing/patient valuable form completed. CAROLYNE VELAZQUEZ
[2020-05-21] MEDS ORDERED: Percocet 325 MG1 TAB PO (18:10)
--- NOTE | 2020-05-21 18:40 | NUR ---
DR. HIGGINS ON FLOOR MADE AWARE PT MEDICATIONS ARE REVIEWED AND NEED ORDERED.
--- NOTE | 2020-05-21 19:08 | NUR ---
CALLED DR. WONG MADE AWARE HOME MEDICATIONS NEED ORDERED.
[2020-05-21 20:00] VITALS: BP 171/110
--- NOTE | 2020-05-21 20:07 | NUR ---
NORCO GIVEN PER PATIENT REQUEST FOR COMPLAINTS OF LEFT KNEE PAIN RATED 9/10. WILL ASSESS EFFECTIVENESS.
--- NOTE | 2020-05-21 21:00 | NUR ---
NORCO EFFECTIVE PER PATIENT. WILL CONTINUE TO MONITOR.
[2020-05-22] VITALS: BP 148/83
--- NOTE | 2020-05-22 04:31 | NUR ---
Patient resting quietly with no c/o discomfort. Respirations easy and regular. Vital signs stable. No overt distress. ORVILLE BISWAS
--- NOTE | 2020-05-22 05:48 | NUR ---
NORCO GIVEN PER PATIENT REQUEST FOR COMPLAINTS OF PAIN RATED 8/10. WILL ASSESS EFFECTIVENESS.
[2020-05-22 06:29] LABS: BASO # 0.1 10*3/uL (0.0-0.1); BASO % 0.6 % (0.0-1.0); EOS # 0.3 10*3/uL (0.0-0.4); EOS % 2.8 % (1.0-4.0); HEMATOCRIT 37.7 % (37.0-47.0); LYMPH # 2.1 10*3/uL (1.3-4.4); LYMPH % 22.1 % (27.0-41.0); MEAN CELL VOLUME 88.7 fl (81.0-99.0); MEAN CORPUSCULAR HGB 27.5 pg (27.0-31.0); MEAN PLATELET VOLUME 10.9 fl (9.6-12.3); MONO # 0.9 10*3/uL (0.1-1.0); NEUT # 6.2 10*3/uL (2.3-7.9); PLATELET COUNT AUTOMATED 233 10*3/uL (130-400); RED BLOOD COUNT 4.25 10*6/uL (4.10-5.10); RED CELL DISTRI WIDTH 17.3 % (0-14.5); WHITE BLOOD COUNT 9.5 10*3/uL (4.8-10.8)
--- NOTE | 2020-05-22 06:40 | NUR ---
NORCO EFFECTIVE PER PATIENT.
[2020-05-22 06:45] LABS: ALBUMIN 3.2 gm/dl (3.1-4.5); CHLORIDE 107 mmol/L (98-107); POTASSIUM 3.8 mmol/L (3.5-5.1); SODIUM 138 mmol/L (136-145)
[2020-05-22 06:54] LABS: ALKALINE PHOSPHATASE 117 U/L (45-117); BUN 8 mg/dl (7-24); CHOLESTEROL 228 mg/dL (<200); CREATININE 0.98 mg/dL (0.55-1.02); HDL CHOLESTEROL 30 mg/dl (40-60); LDL CHOLESTEROL 154 mg/dL (9-159); SGOT/AST 44 IU/L (3-35); SGPT/ALT 60 U/L (12-78); TOTAL PROTEIN 6.7 gm/dL (6.4-8.2); TRIGLYCERIDES 220 mg/dl (<150); VLDL CHOLESTEROL 44 mg/dL (6-40)
--- NOTE | 2020-05-22 07:30 | NUR ---
PT RESTING IN BED. RESPS EASY AND NON LABORED. NO S/S OF DISTRESS NOTED. VSS. WHITE BOARD UPDATED. POC DISCUSSED W PT. ROOM AIR. A/OX3. HACKING/MOIST NON PRODUCTIVE COUGH NOTED-PT STATES IT HAS BEEN LIKE THIS FOR MONTHS AND NOTHING WORKS. DENIES SOB. WILL CONTINUE TO MONITOR. CALL LIGHT WITHIN REACH.
[2020-05-22 08:00] VITALS: BP 140/74
--- NOTE | 2020-05-22 11:30 | NUR ---
Aluminum Polisher in to talk to patient. Patient states lives at HOME with . There are 12 steps in the home. Physician: FLORIDA OBREGON Pharmacy: [facility] Home health services: NONE Patient's level of ADLs: MINIMAL ASSIST Patient has working utilities: YES DME: [facility] Follow-up physician's appointment after d/c: WILL BE MADE BY HOSPITALIST NURSE DIRECTOR ON DISCHARGE Does patient want to access PORTAL?: NO Discharge plan PT LIVES AT HOME WITH HER HUSBAMD AND REQUIRES MINIMAL ASSISTANCE WITH ADLS SINCE HAVING KNEE SURGERY ON Mar. PT STATES SHE IS GOING TO OP THERAPY 3 TIMES A WEEK. DELINES NEEDS AT HOME AT THIS TIME. PLAN IS TO RETURN HOME WHEN MEDICALLY STABLE. WILL CONTINUE TO FOLLOW.. LEONARD BLANDON
[2020-05-22 12:00] VITALS: BP 148/86
--- NOTE | 2020-05-22 14:25 | NUR ---
Occupational Therapy evaluation completed on five with full evaluation to follow. Patient is evaluation only this date. She is independent with ADLs, transfers, and functional mobility. Patient is at her baseline and does not need further OT services. Patient agreeable to being discharged from OT. Recommend patient return home with outpatient PT. Thank you. Itzel Barton, OTR/L
--- NOTE | 2020-05-22 14:40 | NUR ---
PHYSICAL THERAPY Physical Therapy evaluation completed on 5th floor with full evaluation to follow. Recommend physical therapy per plan of care and home with continued with outpatient physical therapy upon discharge. Thank you for this referral. Santiago Batista SPT Kimberley Hannon PT,DPT
--- NOTE | 2020-05-22 15:13 | NUR ---
Patient resting quietly with no c/o discomfort. Respirations easy and regular. Vital signs stable. No overt distress. HISSOM,JONY
[2020-05-22 16:00] VITALS: BP 144/90
--- NOTE | 2020-05-22 16:37 | NUR ---
PT C/O 5/10 ACHING HEADACHE. MEDICATED PER ORDER. WILL MONITOR FOR RELIEF. RESPS EASY AND NON LABORED. RESTING IN BED. CALL LIGHT WITHIN REACH.
--- NOTE | 2020-05-22 17:30 | NUR ---
MEDICATION EFFECTIVE PER PT
--- NOTE | 2020-05-22 19:51 | NUR ---
ASSESSMENT COMPLETE AT THIS TIME WITHOUT INCIDENCE. REPISRATIONS ARE RELAXED AND REGULAR. SHE HAS NO COMPLAINTS AT THIS TIME. CALL LIGHT WITHIN REACH, WILL CONTINUE TO MONITOR
[2020-05-22 20:00] VITALS: BP 158/89
[2020-05-23] VITALS: BP 157/83
--- NOTE | 2020-05-23 02:31 | NUR ---
24 HR chart check completed.
--- NOTE | 2020-05-23 04:14 | NUR ---
Patient sleeping. Respirations relaxed and easy. CALL LIGHT WITHIN REACH GARY WASHBURN
[2020-05-23 06:37] LABS: BASO # 0.1 10*3/uL (0.0-0.1); BASO % 0.4 % (0.0-1.0); EOS % 0.1 % (1.0-4.0); HEMATOCRIT 41.3 % (37.0-47.0); LYMPH # 1.4 10*3/uL (1.3-4.4); LYMPH % 11.8 % (27.0-41.0); MEAN CELL VOLUME 87.9 fl (81.0-99.0); MEAN CORPUSCULAR HGB 27.2 pg (27.0-31.0); MEAN PLATELET VOLUME 10.6 fl (9.6-12.3); MONO # 0.2 10*3/uL (0.1-1.0); MONO % 1.8 % (3.0-9.0); NEUT # 10.1 10*3/uL (2.3-7.9); PLATELET COUNT AUTOMATED 265 10*3/uL (130-400); RED CELL DISTRI WIDTH 16.8 % (0-14.5)
[2020-05-23 06:49] LABS: BUN 11 mg/dl (7-24); CHLORIDE 109 mmol/L (98-107); CREATININE 0.94 mg/dL (0.55-1.02); POTASSIUM 4.3 mmol/L (3.5-5.1); SODIUM 137 mmol/L (136-145)
[2020-05-23 08:00] VITALS: BP 138/68; BP 158/90
--- NOTE | 2020-05-23 09:39 | NUR ---
NORCO 5/325 MG GIVEN FOR C/O KNEE PAIN,04/02.
--- NOTE | 2020-05-23 11:21 | NUR ---
NOTIFIED DR SARMIENTO OF CONSULT FOR COPD,CONTINUOUS WHEEZING.
--- NOTE | 2020-05-23 11:36 | NUR ---
PT CONTINUES TO DENY NEEDS AT HOME. REQUESTING A NEBULIZER, DR GARCES INFORMED.
[2020-05-23 12:00] VITALS: BP 150/94
[2020-05-23 16:00] VITALS: BP 142/92
--- NOTE | 2020-05-23 18:28 | NUR ---
NORCO 5/325 MG GIVEN FOR C/O PAIN TO KNEE,03/02.
[2020-05-23 20:00] VITALS: BP 149/74
--- NOTE | 2020-05-23 21:30 | NUR ---
PATIENT AWAKE ALERT. RESTING IN BED. C/O KNEE DISCOMFORT. STATES WHILE LAYING DOWN AND STILL SHE IS NOT HAVING TROUBLE BREATHING. IT IS ONLY WITH EXERTION. OFFERED BREATHING TX. DENIES WANTING ONE AT THIS TIME. REQUESTING TO SHOWER. EXPLAINED TO PATIENT I WOULD HAVE TO ASK THE DOCTOR AND WOULD LET HER KNOW. PATIENT AWARE HER NORCO IS NOT DUE YET AND WOULD LIKE TO BE GIVEN A NORCO WHEN IT IS TIME. PATIENT VOICES NO OTHER COMPLAINTS/NEEDS. BED IN LOWEST POSITION,CALL LIGHT WIHTIN REACH. WILL CONTINUE TO MONITOR.
--- NOTE | 2020-05-23 21:35 | NUR ---
NOTIFIED DR. YE PATIENT IS REQUESTING TO SHOWER. PER DR. YE IT IS OKAY TO REMOVE PATIENTS HEART MONITOR FOR HER TO SHOWER. WILL CONTINUE TO MONITOR.
--- NOTE | 2020-05-23 22:53 | NUR ---
PATIENT C/O LEFT KNEE PAIN. RATES 04/02. MEDICATED WITH NORCO AT THIS TIME. WILL CHECK EFFECTIVENESS.
--- NOTE | 2020-05-23 23:54 | NUR ---
PATIENT SLEEPING. NORCO EFFECTIVE. NO SIGNS OF DISTRESS. WILL CONTINUE TO MONITOR.
[2020-05-24] VITALS: BP 147/80
--- NOTE | 2020-05-24 04:00 | NUR ---
PATIENT SLEEPING. NO SIGNS OF DISTRESS. RESPIRATIONS EASY, NON LABORED. BED IN LOWEST POSITION,CALL LIGHT WITHIN REACH. WILL CONTINUE TO MONITOR.
--- NOTE | 2020-05-24 07:48 | NUR ---
24 HR chart check completed.
[2020-05-24 08:00] VITALS: BP 168/96
--- NOTE | 2020-05-24 08:55 | NUR ---
Patient resting quietly with no c/o discomfort. Respirations easy and regular. Vital signs stable. No overt distress. LATANYA VÁSQUEZ
--- NOTE | 2020-05-24 11:13 | NUR ---
WAITING FOR DR SARMIENTO NOTE TO SEND FOR ORDER FOR NEBULIZER. WILL CONTINUE TO FOLLOW.
[2020-05-24 12:00] VITALS: BP 158/88
--- NOTE | 2020-05-24 12:00 | NUR ---
Patient resting quietly with no c/o discomfort. Respirations easy and regular. Vital signs stable. No overt distress. LATANYA VÁSQUEZ
[2020-05-24 16:00] VITALS: BP 158/98
--- NOTE | 2020-05-24 17:00 | NUR ---
NICOTINE PATCH REMOVED AND NICOTROL INHALER STARTED FOR C/O ANXIETY/PT STATING SHE TURNS TO SMOKING WITH ANXIETY.
--- NOTE | 2020-05-24 17:12 | NUR ---
PT INSTRUCTED ON FLUTTER. PT INSTRUCTED TO USE IT Q1 WHILE AWAKE.
--- NOTE | 2020-05-24 19:19 | NUR ---
MEDICATED WITH PO ATIVAN ORDERED PER PT REQUEST FOR C/O ANXIETY.
[2020-05-24 20:00] VITALS: BP 165/91
--- NOTE | 2020-05-24 20:19 | NUR ---
PATIENT STATES ATIVAN HELPED A LITTLE.
--- NOTE | 2020-05-24 21:35 | NUR ---
PATIENT REQUESTING A SLEEPING PILL. STATES SHE HASNT SLEPT MUCH THE LAST COUPLE NIGHTS HERE. MEDICATED AT THIS TIME WITH RESTORIL. WILL CHECK EFFECTIVENES.
--- NOTE | 2020-05-24 22:35 | NUR ---
PATIENT SLEEPING, NO SIGNS OF DISTRES. RESPIRATIONS EASY, NON LABORED. RESTORIL EFFECTIVE. WILL CONTINUE TO MONITOR.
[2020-05-25] VITALS: BP 132/72
--- NOTE | 2020-05-25 04:00 | NUR ---
PATIENT SLEEPING, NO SIGNS OF DISTRESS. WILL CONTINUE TO MONITOR.
[2020-05-25 08:00] VITALS: BP 130/82
--- NOTE | 2020-05-25 09:55 | NUR ---
REFERRAL AND SCRIP FOR NEBULIZER SENT TO [facility] TO REVIEW.
[2020-05-25] MEDS ORDERED: PREDNISONE10 MG PO (10:27)
[2020-05-25] MEDS ORDERED: DOXYCYCLINE100 M3 PO (10:27)
--- NOTE | 2020-05-25 12:31 | NUR ---
Discharge instructions reviewed with patient/family. Patient receptive and verbalizes understanding. Follow-up care arranged. Written instructions given to patient/family. EKATERINA CHINCHILLA
== END 2020-05-25 12:31 | disposition home or self-care (01) | DRG 871 ==
LOC: ED 15:15 → EDHOLD 17:10 → 5E 17:10 → EDHOLD 18:02 → 5E 18:03
PROVIDERS: Emergency Medicine; Student in an Organized Health Care Education/Training Program; ADMIT Family Medicine; ATTEND Family Medicine
DX: A41.9 Sepsis, unspecified organism (principal); B58 Toxoplasmosis; E87.1 Hypo-osmolality and hyponatremia; J44.0 Chronic obstructive pulmonary disease with (acute) lower respiratory infection; J44.1 Chronic obstructive pulmonary disease with (acute) exacerbation; Z68.41 Body mass index [BMI] 40.0-44.9, adult; M10.9 Gout, unspecified; R60.9 Edema, unspecified; E78.5 Hyperlipidemia, unspecified; K57.90 Diverticulosis of intestine, part unspecified, without perforation or abscess without bleeding; K64.9 Unspecified hemorrhoids; E83.51 Hypocalcemia; K21.9 Gastro-esophageal reflux disease without esophagitis; R74.8 Abnormal levels of other serum enzymes; R73.9 Hyperglycemia, unspecified; F17.210 Nicotine dependence, cigarettes, uncomplicated; I12.9 Hypertensive chronic kidney disease with stage 1 through stage 4 chronic kidney disease, or unspecified chronic kidney disease; N18.9 Chronic kidney disease, unspecified; J20.9 Acute bronchitis, unspecified; E66.01 Morbid (severe) obesity due to excess calories; E03.9 Hypothyroidism, unspecified; Z96.1 Presence of intraocular lens; G47.33 Obstructive sleep apnea (adult) (pediatric); Z96.652 Presence of left artificial knee joint; G43.909 Migraine, unspecified, not intractable, without status migrainosus; E87.8 Other disorders of electrolyte and fluid balance, not elsewhere classified; T38.0X5A Adverse effect of glucocorticoids and synthetic analogues, initial encounter; Y92.89 Other specified places as the place of occurrence of the external cause; Z85.850 Personal history of malignant neoplasm of thyroid; Z87.01 Personal history of pneumonia (recurrent); Z98.51 Tubal ligation status; Z98.42 Cataract extraction status, left eye; Z98.41 Cataract extraction status, right eye; Z82.49 Family history of ischemic heart disease and other diseases of the circulatory system; Z82.3 Family history of stroke; Z83.3 Family history of diabetes mellitus; Z79.82 Long term (current) use of aspirin; Z79.899 Other long term (current) drug therapy; Z71.6 Tobacco abuse counseling

== ENCOUNTER 2020-06-26 09:54 | Emergency (ER) | payer BC ==
[~2020-06-26] VITALS: Ht 160 cm; Wt 90.7 kg
[~2020-06-26 09:54] MED LIST changes: +DOXYCYCLINE100 M3 PO; +Percocet 325 MG1 TAB PO
[2020-06-29] MEDS ORDERED: FLOVENT HFA12 GM INH (13:57)
[2020-06-29] MEDS ORDERED: ALBUTEROL0.63 MG/3 INH (13:58)
[2020-06-29] MEDS ORDERED: COZAAR100 MG PO (13:59)
[2020-06-29] MEDS ORDERED: Ipratropium Brom3 ML INH (14:00)
[2020-06-29] MEDS ORDERED: METOPROLOL SUCC25 M2 PO (14:00)
== END 2020-06-26 11:11 | disposition home or self-care (01) ==
LOC: ED 09:54
DX: M79.605 Pain in left leg (principal); R60.0 Localized edema; R20.8 Other disturbances of skin sensation; F17.210 Nicotine dependence, cigarettes, uncomplicated; Z79.82 Long term (current) use of aspirin; Z79.899 Other long term (current) drug therapy; Z98.890 Other specified postprocedural states; Z90.89 Acquired absence of other organs; Z98.51 Tubal ligation status; Z98.61 Coronary angioplasty status; Z96.652 Presence of left artificial knee joint

== ENCOUNTER → 2020-06-27 | Outpatient (CLI) | payer BC ==
[~2020-06-27] MED LIST changes: +ALBUTEROL0.63 MG/3 INH; +COZAAR100 MG PO; +FLOVENT HFA12 GM INH; +Ipratropium Brom3 ML INH
== END | disposition home or self-care (01) ==
LOC: COVID19 04:35
PROVIDERS: ATTEND Internal Medicine Critical Care Medicine
DX: Z20.828 Contact with and (suspected) exposure to other viral communicable diseases (principal)

== ENCOUNTER 2020-12-14 16:11 | Emergency (ER) | payer SELFPAY ==
[~2020-12-14] VITALS: Ht 160 cm; Wt 101.2 kg
[2020-12-14 18:20] LABS: BASO # 0.1 10*3/uL (0.0-0.1); BASO % 0.7 % (0.0-1.0); EOS # 0.2 10*3/uL (0.0-0.4); EOS % 2.4 % (1.0-4.0); HEMATOCRIT 41.4 % (37.0-47.0); LYMPH # 2.8 10*3/uL (1.3-4.4); LYMPH % 29.2 % (27.0-41.0); MEAN CELL VOLUME 90.4 fl (81.0-99.0); MEAN CORPUSCULAR HGB 28.6 pg (27.0-31.0); MEAN CORPUSCULAR HGB CONC 31.6 g/dl (33.0-37.0); MEAN PLATELET VOLUME 10.7 fl (9.6-12.3); MONO # 0.6 10*3/uL (0.1-1.0); MONO % 6.6 % (3.0-9.0); NEUT # 5.8 10*3/uL (2.3-7.9); NEUT % 60.5 % (47.0-73.0); PLATELET COUNT AUTOMATED 230 10*3/uL (130-400); RED BLOOD COUNT 4.58 10*6/uL (4.10-5.10); RED CELL DISTRI WIDTH 16.3 % (0-14.5); WHITE BLOOD COUNT 9.6 10*3/uL (4.8-10.8)
[2020-12-14 18:30] LABS: BILIRUBIN Negative (Negative); BLOOD 3+ (Negative); CLARITY Cloudy (Clear); COLOR Red (Yellow); GLUCOSE Negative (Negative); KETONE Negative (Negative); LEUKO ESTERASE 1+ (Negative); NITRITE Negative (Negative); SPECIFIC GRAVITY <= 1.005 (1.001-1.030); UROBILINOGEN 0.2 E.U./dl (0.0-1.0)
[2020-12-14 18:39] LABS: ALBUMIN 3.8 gm/dl (3.1-4.5); ALKALINE PHOSPHATASE 128 U/L (45-117); BUN 13 mg/dl (7-24); CHLORIDE 106 mmol/L (98-107); CREATININE 1.13 mg/dL (0.55-1.02); POTASSIUM 3.9 mmol/L (3.5-5.1); SGOT/AST 82 IU/L (3-35); SGPT/ALT 81 U/L (12-78); SODIUM 140 mmol/L (136-145); TOTAL PROTEIN 7.3 gm/dL (6.4-8.2)
[2020-12-14 18:41] LABS: ACT PARTIAL THROMBO TIME 28.8 SECONDS (20.0-32.1)
[2020-12-14 18:41] LABS: RBC TNTC rbc/hpf (0-2)
== END 2020-12-14 21:07 | disposition home or self-care (01) ==
LOC: ED 16:11
PROVIDERS: Physician Assistant
DX: N93.8 Other specified abnormal uterine and vaginal bleeding (principal); R79.89 Other specified abnormal findings of blood chemistry; F17.210 Nicotine dependence, cigarettes, uncomplicated; Z98.51 Tubal ligation status; Z79.82 Long term (current) use of aspirin; Z79.899 Other long term (current) drug therapy

== ENCOUNTER 2021-01-11 05:30 | Emergency (ER) | payer SELFPAY ==
[~2021-01-11] VITALS: Ht 160 cm; Wt 101.2 kg
[2021-01-11 07:03] LABS: BASO # 0.1 10*3/uL (0.0-0.1); BASO % 1.3 % (0.0-1.0); EOS # 0.5 10*3/uL (0.0-0.4); EOS % 5.2 % (1.0-4.0); LYMPH # 3.2 10*3/uL (1.3-4.4); LYMPH % 33.2 % (27.0-41.0); MEAN CELL VOLUME 89.9 fl (81.0-99.0); MEAN CORPUSCULAR HGB 29.1 pg (27.0-31.0); MEAN CORPUSCULAR HGB CONC 32.4 g/dl (33.0-37.0); MEAN PLATELET VOLUME 10.8 fl (9.6-12.3); MONO # 0.7 10*3/uL (0.1-1.0); MONO % 7.1 % (3.0-9.0); NEUT % 52.9 % (47.0-73.0); PLATELET COUNT AUTOMATED 217 10*3/uL (130-400); RED BLOOD COUNT 4.67 10*6/uL (4.10-5.10); RED CELL DISTRI WIDTH 16.5 % (0-14.5); WHITE BLOOD COUNT 9.5 10*3/uL (4.8-10.8)
[2021-01-11 07:19] LABS: ALBUMIN 4.2 gm/dl (3.1-4.5); CREATININE 1.34 mg/dL (0.55-1.02); POTASSIUM 3.6 mmol/L (3.5-5.1)
[2021-01-11 08:08] LABS: BILIRUBIN Negative (Negative); BLOOD Negative (Negative); CLARITY Cloudy (Clear); COLOR Yellow (Yellow); GLUCOSE Negative (Negative); KETONE Negative (Negative); LEUKO ESTERASE Negative (Negative); NITRITE Negative (Negative); PH 5.5 (4.5-8.0); UROBILINOGEN 0.2 E.U./dl (0.0-1.0)
[2021-01-11 08:18] LABS: BACTERIA 2+
[2021-01-11] MEDS ORDERED: PREDNISONE10 MG PO (16:25)
[2021-01-11] MEDS ORDERED: CYCLOBENZAPRINE10 MG PO (16:25)
[2021-01-11] MEDS ORDERED: PERCOCET 5-3251 EACH PO (16:26)
== END 2021-01-11 16:59 | disposition home or self-care (01) ==
LOC: ED 05:30
PROVIDERS: Emergency Medicine
DX: M54.12 Radiculopathy, cervical region (principal); I10 Essential (primary) hypertension; E78.5 Hyperlipidemia, unspecified; G43.909 Migraine, unspecified, not intractable, without status migrainosus; Z79.899 Other long term (current) drug therapy; Z88.5 Allergy status to narcotic agent

== ENCOUNTER 2021-02-07 14:25 | Emergency (ER) | payer SELFPAY ==
[~2021-02-07] VITALS: Ht 160 cm; Wt 100.2 kg
[~2021-02-07 14:25] MED LIST changes: +CYCLOBENZAPRINE10 MG PO; +PERCOCET 5-3251 EACH PO
[2021-02-07 17:30] LABS: BASO # 0.1 10*3/uL (0.0-0.1); BASO % 0.6 % (0.0-1.0); EOS # 0.2 10*3/uL (0.0-0.4); EOS % 2.2 % (1.0-4.0); HEMATOCRIT 44.6 % (37.0-47.0); LYMPH # 2.7 10*3/uL (1.3-4.4); LYMPH % 28.4 % (27.0-41.0); MEAN CORPUSCULAR HGB 28.9 pg (27.0-31.0); MEAN CORPUSCULAR HGB CONC 32.5 g/dl (33.0-37.0); MEAN PLATELET VOLUME 10.5 fl (9.6-12.3); MONO # 0.6 10*3/uL (0.1-1.0); MONO % 6.1 % (3.0-9.0); NEUT # 5.8 10*3/uL (2.3-7.9); NEUT % 62.2 % (47.0-73.0); PLATELET COUNT AUTOMATED 266 10*3/uL (130-400); RED BLOOD COUNT 5.01 10*6/uL (4.10-5.10); RED CELL DISTRI WIDTH 16.7 % (0-14.5); WHITE BLOOD COUNT 9.4 10*3/uL (4.8-10.8)
[2021-02-07 17:48] LABS: ALBUMIN 3.8 gm/dl (3.1-4.5); CREATININE 1.4 mg/dL (0.55-1.02); POTASSIUM 3.5 mmol/L (3.5-5.1); TOTAL PROTEIN 7.9 gm/dL (6.4-8.2)
== END 2021-02-08 00:05 | disposition short-term general hospital (02) ==
LOC: ED 14:25
PROVIDERS: Emergency Medicine
DX: M54.16 Radiculopathy, lumbar region (principal); Z79.899 Other long term (current) drug therapy; Z79.82 Long term (current) use of aspirin; Z98.890 Other specified postprocedural states; Z98.51 Tubal ligation status

== ENCOUNTER 2021-05-05 19:01 | Emergency (ER) | payer SELFPAY ==
[~2021-05-05] VITALS: Wt 99.8 kg
[2021-05-05] MEDS ORDERED: FLONASE ALLERG9.9 ML NAS (21:48)
[2021-05-05] MEDS ORDERED: SEPTDS PO (21:48)
== END 2021-05-05 22:01 | disposition home or self-care (01) ==
LOC: ED 19:01
DX: J32.9 Chronic sinusitis, unspecified (principal); Z20.822 Contact with and (suspected) exposure to COVID-19; F17.210 Nicotine dependence, cigarettes, uncomplicated; Z79.899 Other long term (current) drug therapy; Z79.82 Long term (current) use of aspirin; Z90.89 Acquired absence of other organs; Z98.51 Tubal ligation status; Z98.61 Coronary angioplasty status

== ENCOUNTER → 2021-09-11 | Outpatient (CLI) | payer BC ==
[~2021-09-11] MED LIST changes: +FLONASE ALLERG9.9 ML NAS; +SEPTDS PO
[2021-09-11 12:48] LABS: ALBUMIN 3.6 gm/dl (3.1-4.5); ALKALINE PHOSPHATASE 123 U/L (45-117); BUN 13 mg/dl (7-24); CHLORIDE 107 mmol/L (98-107); CHOLESTEROL 219 mg/dL (<200); CREATININE 0.79 mg/dL (0.55-1.02); POTASSIUM 4.3 mmol/L (3.5-5.1); SGOT/AST 34 IU/L (3-35); SODIUM 139 mmol/L (136-145); TOTAL PROTEIN 7.6 gm/dL (6.4-8.2); TRIGLYCERIDES 169 mg/dl (<150)
[2021-09-11 12:54] LABS: FREE T4 1.84 ng/dl (0.76-1.46); LDL CHOLESTEROL 142 mg/dL (9-159); SGPT/ALT 45 U/L (12-78); THYROID STIM HORMONE (HS) 0.048 uIU/ml (0.358-4.75)
[2021-09-12 06:07] LABS: THYROID PEROXIDASE (TPO) AB <8 IU/mL (0-34)
[2021-09-12 16:08] LABS: THYROGLOBULIN ANTIBODY <1.0 IU/mL (0.0-0.9)
== END | disposition home or self-care (01) ==
LOC: LAB 12:01
PROVIDERS: ATTEND Internal Medicine
DX: C73 Malignant neoplasm of thyroid gland (principal); E03.9 Hypothyroidism, unspecified; R73.09 Other abnormal glucose; E55.9 Vitamin D deficiency, unspecified; E78.5 Hyperlipidemia, unspecified; R74.01 Elevation of levels of liver transaminase levels

== ENCOUNTER 2022-05-10 17:10 | Emergency (ER) | payer BC ==
[~2022-05-10] VITALS: Ht 160 cm; Wt 98.9 kg
[2022-05-10] MEDS ORDERED: PLAVIX75 M1 PO (18:23)
[2022-05-10] MEDS ORDERED: LIPITOR10 MG PO (18:23)
[2022-05-10] MEDS ORDERED: LISINOPRIL20 MG PO (18:23)
[2022-05-10 18:28] LABS: BASO # 0.1 10*3/uL (0.0-0.1); BASO % 0.7 % (0.0-1.0); EOS # 0.2 10*3/uL (0.0-0.4); EOS % 1.7 % (1.0-4.0); HEMATOCRIT 42.4 % (37.0-47.0); LYMPH # 4.3 10*3/uL (1.3-4.4); LYMPH % 34.6 % (27.0-41.0); MEAN CELL VOLUME 86.9 fl (81.0-99.0); MEAN CORPUSCULAR HGB 27.9 pg (27.0-31.0); MEAN CORPUSCULAR HGB CONC 32.1 g/dl (33.0-37.0); MEAN PLATELET VOLUME 11.2 fl (9.6-12.3); MONO # 0.9 10*3/uL (0.1-1.0); MONO % 7.2 % (3.0-9.0); NEUT # 6.9 10*3/uL (2.3-7.9); NEUT % 55.4 % (47.0-73.0); PLATELET COUNT AUTOMATED 250 10*3/uL (130-400); RED BLOOD COUNT 4.88 10*6/uL (4.10-5.10); RED CELL DISTRI WIDTH 16.9 % (0-14.5); WHITE BLOOD COUNT 12.4 10*3/uL (4.8-10.8)
[2022-05-10 18:44] LABS: ALKALINE PHOSPHATASE 134 U/L (45-117); BUN 23 mg/dl (7-24); CHLORIDE 110 mmol/L (98-107); CREATININE 1.12 mg/dL (0.55-1.02); POTASSIUM 3.7 mmol/L (3.5-5.1); SGOT/AST 24 IU/L (3-35); SGPT/ALT 41 U/L (12-78); SODIUM 143 mmol/L (136-145); TOTAL PROTEIN 7.7 gm/dL (6.4-8.2)
[2022-05-10] MEDS ORDERED: AMOX-CLAV 875-1 EACH PO (19:00)
== END 2022-05-10 19:30 | disposition home or self-care (01) ==
LOC: ED 17:10
PROVIDERS: Family Medicine
DX: H72.92 Unspecified perforation of tympanic membrane, left ear (principal); Z79.899 Other long term (current) drug therapy; Z90.89 Acquired absence of other organs; Z98.51 Tubal ligation status; Z98.890 Other specified postprocedural states

== ENCOUNTER 2022-08-04 14:02 | Emergency (ER) | payer BC ==
[~2022-08-04] VITALS: Ht 160 cm; Wt 96.2 kg
[~2022-08-04 14:02] MED LIST changes: +AMOX-CLAV 875-1 EACH PO; +LIPITOR10 MG PO; +PLAVIX75 M1 PO
[2022-08-04 15:58] LABS: BASO # 0.1 10*3/uL (0.0-0.1); BASO % 0.7 % (0.0-1.0); EOS # 0.3 10*3/uL (0.0-0.4); EOS % 3.6 % (1.0-4.0); HEMATOCRIT 44.8 % (37.0-47.0); LYMPH # 2.5 10*3/uL (1.3-4.4); LYMPH % 36.4 % (27.0-41.0); MEAN CELL VOLUME 87.5 fl (81.0-99.0); MEAN CORPUSCULAR HGB 27.7 pg (27.0-31.0); MEAN CORPUSCULAR HGB CONC 31.7 g/dl (33.0-37.0); MONO # 0.7 10*3/uL (0.1-1.0); MONO % 9.9 % (3.0-9.0); NEUT # 3.4 10*3/uL (2.3-7.9); NEUT % 49.1 % (47.0-73.0); PLATELET COUNT AUTOMATED 220 10*3/uL (130-400); RED BLOOD COUNT 5.12 10*6/uL (4.10-5.10); RED CELL DISTRI WIDTH 15.6 % (0-14.5)
[2022-08-04 16:16] LABS: ALKALINE PHOSPHATASE 123 U/L (46-116); BUN 11 mg/dl (9-23); CHLORIDE 106 mmol/L (98-107); CREATININE 0.89 mg/dL (0.55-1.02); POTASSIUM 4.2 mmol/L (3.4-5.1); SGPT/ALT 36 U/L (10-49); SODIUM 139 mmol/L (136-145); TOTAL PROTEIN 7.7 gm/dL (6.0-8.0)
[2022-08-04] MEDS ORDERED: PROVENTIL HFA6.7 GM INH (18:32)
[2022-08-04] MEDS ORDERED: MEDROL DOSEPAK4 MG PO (18:32)
[2022-08-04] MEDS ORDERED: ALBUTEROL2.5 MG/0.5 INH (18:32)
[2022-08-04] MEDS ORDERED: ZITHROMAX250 MG PO (18:32)
== END 2022-08-04 18:42 | disposition home or self-care (01) ==
LOC: ED 14:02
PROVIDERS: Nurse Practitioner Family
DX: J06.9 Acute upper respiratory infection, unspecified (principal); F17.210 Nicotine dependence, cigarettes, uncomplicated; F10.90 Alcohol use, unspecified, uncomplicated; Z90.89 Acquired absence of other organs; Z98.51 Tubal ligation status; Z98.890 Other specified postprocedural states; Z20.822 Contact with and (suspected) exposure to COVID-19

== ENCOUNTER 2023-12-02 01:02 | Emergency (ER) | payer BC ==
[~2023-12-02] VITALS: Ht 160 cm; Wt 99.6 kg
[~2023-12-02 01:02] MED LIST changes: +ALBUTEROL2.5 MG/0.5 INH; +PROVENTIL HFA6.7 GM INH; +ZITHROMAX250 MG PO
[2023-12-02] MEDS ORDERED: Ondansetron Hydrochloride 4 MG TAB SL ONE (01:15)
[2023-12-02 01:29] LABS: BASO # 0.1 10*3/uL (0.0-0.1); BASO % 0.6 % (0.0-1.0); EOS # 0.2 10*3/uL (0.0-0.4); EOS % 2.2 % (1.0-4.0); HEMATOCRIT 42.5 % (37.0-47.0); LYMPH % 41.9 % (27.0-41.0); MEAN CELL VOLUME 87.6 fl (81.0-99.0); MEAN CORPUSCULAR HGB 27.4 pg (27.0-31.0); MEAN CORPUSCULAR HGB CONC 31.3 g/dl (33.0-37.0); MEAN PLATELET VOLUME 10.9 fl (9.6-12.3); MONO # 0.8 10*3/uL (0.1-1.0); MONO % 8.7 % (3.0-9.0); NEUT # 4.4 10*3/uL (2.3-7.9); NEUT % 46.4 % (47.0-73.0); PLATELET COUNT AUTOMATED 226 10*3/uL (130-400); RED BLOOD COUNT 4.85 10*6/uL (4.10-5.10); RED CELL DISTRI WIDTH 13.8 % (0-14.5); WHITE BLOOD COUNT 9.4 10*3/uL (4.8-10.8)
[2023-12-02 01:50] LABS: ALKALINE PHOSPHATASE 117 U/L (46-116); BUN 10 mg/dl (9-23); CHLORIDE 107 mmol/L (98-107); LIPASE 43 U/L (12-53); POTASSIUM 3.8 mmol/L (3.4-5.1); SGPT/ALT 43 U/L (5-49); TOTAL PROTEIN 7.3 gm/dL (6.0-8.0)
[2023-12-02] MEDS ORDERED: Promethazine Hydrochloride 25 MG/ML VIAL IM ONE (04:00)
[2023-12-02] MEDS ORDERED: MEPERIDINE HYDROCHLORIDE 25 MG/1 ML VIAL IM ONE (04:00)
[2023-12-02] MEDS ORDERED: BUMETANIDE 1 MG TAB PO ONE (04:15)
== END 2023-12-02 04:37 | disposition home or self-care (01) ==
LOC: ED 01:02
PROVIDERS: Internal Medicine
DX: K82.8 Other specified diseases of gallbladder (principal); R79.89 Other specified abnormal findings of blood chemistry; M25.511 Pain in right shoulder; I10 Essential (primary) hypertension; K21.9 Gastro-esophageal reflux disease without esophagitis; E11.9 Type 2 diabetes mellitus without complications; Z90.89 Acquired absence of other organs; Z98.51 Tubal ligation status; Z98.890 Other specified postprocedural states; F17.210 Nicotine dependence, cigarettes, uncomplicated

== ENCOUNTER 2024-04-21 12:53 | Emergency (ER) | payer BC ==
[~2024-04-21] VITALS: Ht 160 cm
[2024-04-21] MEDS ORDERED: SODIUM CHLORIDE 0.9% 1,000 ML IV ONE (13:10)
[2024-04-21] MEDS ORDERED: fentaNYL CITRATE 100 MCG/2 ML VIAL IV ONE (13:10)
[2024-04-21 13:35] LABS: BASO # 0.1 10*3/uL (0.0-0.1); BASO % 0.5 % (0.0-1.0); EOS # 0.1 10*3/uL (0.0-0.4); EOS % 1.1 % (1.0-4.0); HEMATOCRIT 41.2 % (37.0-47.0); LYMPH # 3.1 10*3/uL (1.3-4.4); LYMPH % 25.5 % (27.0-41.0); MEAN CELL VOLUME 87.5 fl (81.0-99.0); MEAN CORPUSCULAR HGB 27.6 pg (27.0-31.0); MEAN CORPUSCULAR HGB CONC 31.6 g/dl (33.0-37.0); MEAN PLATELET VOLUME 10.8 fl (9.6-12.3); MONO # 1.1 10*3/uL (0.1-1.0); NEUT # 7.7 10*3/uL (2.3-7.9); NEUT % 63.7 % (47.0-73.0); PLATELET COUNT AUTOMATED 219 10*3/uL (130-400); RED BLOOD COUNT 4.71 10*6/uL (4.10-5.10); RED CELL DISTRI WIDTH 14.6 % (0-14.5); WHITE BLOOD COUNT 12.2 10*3/uL (4.8-10.8)
[2024-04-21 13:44] LABS: BILIRUBIN Negative (Negative); BLOOD Negative (Negative); CLARITY Clear (Clear); COLOR Yellow (Yellow); GLUCOSE Negative (Negative); KETONE Negative (Negative); LEUKO ESTERASE Negative (Negative); NITRITE Negative (Negative); SPECIFIC GRAVITY <= 1.005 (1.001-1.030); UROBILINOGEN 0.2 E.U./dl (0.0-1.0)
[2024-04-21] MEDS ORDERED: Ondansetron Hydrochloride 4 MG/2 ML VIAL IV ONE (13:45)
[2024-04-21] MEDS ORDERED: IOHEXOL 300 MG/ML 100 ML VIAL IV ONE (13:50)
[2024-04-21 13:52] LABS: EPITHELIAL CELLS 16-20; MUCOUS 1+; WBC 0-2 wbc/hpf (0-5)
[2024-04-21 14:00] LABS: ALKALINE PHOSPHATASE 121 U/L (46-116); BUN 10 mg/dl (9-23); CHLORIDE 105 mmol/L (98-107); LIPASE 36 U/L (12-53); POTASSIUM 3.7 mmol/L (3.4-5.1); SGPT/ALT 25 U/L (5-49); TOTAL PROTEIN 7.3 gm/dL (6.0-8.0)
[2024-04-21] MEDS ORDERED: Metoclopramide Hydrochloride 10 MG/2 ML AMP IV ONE (14:50)
[2024-04-21] MEDS ORDERED: METRONIDAZOLE500 M1 PO (15:08)
[2024-04-21] MEDS ORDERED: Ondansetron4 MG PO (15:08)
[2024-04-21] MEDS ORDERED: CIPRO500 MG PO (15:08)
[2024-04-21] MEDS ORDERED: METRONIDAZOLE 500 MG TAB PO ONE (15:10)
[2024-04-21] MEDS ORDERED: Ciprofloxacin Hydrochloride 500 MG TAB PO ONE (15:10)
[2024-04-21] MEDS ORDERED: Acetaminophen/Hydrocodone HP 10/325 PO ONE (15:15)
== END 2024-04-21 15:25 | disposition home or self-care (01) ==
LOC: ED 12:53
PROVIDERS: Nurse Practitioner Family
DX: K57.32 Diverticulitis of large intestine without perforation or abscess without bleeding (principal); I10 Essential (primary) hypertension; K21.9 Gastro-esophageal reflux disease without esophagitis; E11.9 Type 2 diabetes mellitus without complications; Z90.89 Acquired absence of other organs; Z98.51 Tubal ligation status; Z98.890 Other specified postprocedural states; Z95.5 Presence of coronary angioplasty implant and graft; F17.210 Nicotine dependence, cigarettes, uncomplicated

== ENCOUNTER 2024-10-20 13:03 | Emergency (ER) | payer BC ==
[~2024-10-20] VITALS: Ht 160 cm; Wt 99.3 kg
[~2024-10-20 13:03] MED LIST changes: +CIPRO500 MG PO; +METRONIDAZOLE500 M1 PO; +Ondansetron4 MG PO
[2024-10-20 14:58] LABS: BILIRUBIN Negative (Negative); BLOOD Negative (Negative); CLARITY Clear (Clear); COLOR Yellow (Yellow); GLUCOSE Negative (Negative); KETONE Negative (Negative); LEUKO ESTERASE Negative (Negative); NITRITE Negative (Negative); SPECIFIC GRAVITY 1.015 (1.001-1.030); UROBILINOGEN 0.2 E.U./dl (0.0-1.0)
[2024-10-20 15:09] LABS: BACTERIA TRACE; EPITHELIAL CELLS 16-20; MUCOUS TRACE; RBC 0-2 rbc/hpf (0-2)
[2024-10-20] MEDS ORDERED: methylPREDNISolone acetate 40 MG/ML VIAL IM ONE (15:20)
[2024-10-20] MEDS ORDERED: Ketorolac Tromethamine 30 MG/ML VIAL IM ONE (15:20)
[2024-10-20] MEDS ORDERED: Acetaminophen/Oxycodone Hydr 7.5 MG/325 MG TABLET PO ONE (18:15)
[2024-10-20] MEDS ORDERED: CYCLOBENZAPRINE10 MG PO (18:19)
[2024-10-20] MEDS ORDERED: NAPROSYN500 MG PO (18:19)
== END 2024-10-20 18:52 | disposition home or self-care (01) ==
LOC: ED 13:03
PROVIDERS: Internal Medicine
DX: M54.12 Radiculopathy, cervical region (principal); R31.9 Hematuria, unspecified; E03.9 Hypothyroidism, unspecified; I10 Essential (primary) hypertension; E78.5 Hyperlipidemia, unspecified; F17.210 Nicotine dependence, cigarettes, uncomplicated; Z79.2 Long term (current) use of antibiotics; Z79.82 Long term (current) use of aspirin; Z79.899 Other long term (current) drug therapy; Z90.89 Acquired absence of other organs; Z98.890 Other specified postprocedural states

== ENCOUNTER 2025-04-22 20:49 | Observation (INO) | payer BC ==
[~2025-04-22] VITALS: Ht 160 cm; Wt 96.6 kg
[2025-04-22 20:50] VITALS: BP 138/70
[2025-04-22] MEDS ORDERED: SODIUM CHLORIDE 0.9% 1,000 ML IV ONE (20:55)
[2025-04-22 21:30] LABS: BASO # 0.1 10*3/uL (0.0-0.1); BASO % 0.8 % (0.0-1.0); EOS # 0.3 10*3/uL (0.0-0.4); EOS % 3.1 % (1.0-4.0); MEAN CELL VOLUME 87.3 fl (81.0-99.0); MEAN CORPUSCULAR HGB 27.5 pg (27.0-31.0); MEAN PLATELET VOLUME 11.4 fl (9.6-12.3); MONO # 0.8 10*3/uL (0.1-1.0); MONO % 7.3 % (3.0-9.0); NEUT # 5.6 10*3/uL (2.3-7.9); NEUT % 52.1 % (47.0-73.0); NUCLEATED RED BLOOD CELL 0.0 % (0.0-0.0); NUCLEATED RED BLOOD CELL 0.0 10*3/uL (0.0-0.0); PLATELET COUNT AUTOMATED 225 10*3/uL (130-400); RED CELL DISTRI WIDTH 15.7 % (0-14.5)
[2025-04-22 21:45] LABS: ACT PARTIAL THROMBO TIME 25.9 SECONDS (20.0-32.1)
[2025-04-22 22:01] LABS: BUN 23 mg/dl (9-23); SGPT/ALT 60 U/L (5-49)
[2025-04-22] MEDS ORDERED: SODIUM CHLORIDE 0.9% 100 ML BAG IV ONE (23:55)
[2025-04-22] MEDS ORDERED: IOHEXOL 350 MG/ML 100 ML VIAL IV ONE (23:55)
[2025-04-23] VITALS (15 sets, daily range): BP systolic 93–183; BP diastolic 30–106
[2025-04-23] MEDS ORDERED: NAPROXEN SOD.550 MG PO (00:20)
[2025-04-23] MEDS ORDERED: METOPROLOL SUCC50 M1 PO (00:21)
[2025-04-23] MEDS ORDERED: FENOFIBRATE145 M1 PO (00:21)
[2025-04-23] MEDS ORDERED: IOHEXOL 350 MG/ML 100 ML VIAL IV ONE (00:22)
[2025-04-23] MEDS ORDERED: SODIUM CHLORIDE 0.9% 100 ML IV ONE (00:22)
[2025-04-23] MEDS ORDERED: Acetaminophen/Hydrocodone 5 MG/325 MG TABLET PO PRN (03:25)
[2025-04-23] MEDS ORDERED: Ondansetron Hydrochloride 4 MG/2 ML VIAL IV PRN (03:25)
[2025-04-23] MEDS ORDERED: ACETAMINOPHEN 650 MG SUPP R PRN (03:25)
[2025-04-23] MEDS ORDERED: BISACODYL 5 MG TAB PO PRN (03:25)
[2025-04-23] MEDS ORDERED: BISACODYL 10 MG SUPP R PRN (03:25)
[2025-04-23] MEDS ORDERED: ACETAMINOPHEN 325 MG TAB PO PRN (03:25)
[2025-04-23] MEDS ORDERED: ASPIRIN ENTERIC COATED 81 MG TAB PO ONE (03:50)
[2025-04-23] MEDS ORDERED: ATORVASTATIN CALCIUM 80 MG TAB PO SCH (04:00)
[2025-04-23 04:11] LABS: BASO # 0.1 10*3/uL (0.0-0.1); BASO % 0.7 % (0.0-1.0); EOS # 0.3 10*3/uL (0.0-0.4); EOS % 2.7 % (1.0-4.0); MEAN CELL VOLUME 87.9 fl (81.0-99.0); MEAN CORPUSCULAR HGB 27.3 pg (27.0-31.0); MEAN PLATELET VOLUME 11.1 fl (9.6-12.3); MONO # 0.8 10*3/uL (0.1-1.0); MONO % 7.2 % (3.0-9.0); NEUT # 6.3 10*3/uL (2.3-7.9); NEUT % 58.8 % (47.0-73.0); NUCLEATED RED BLOOD CELL 0.0 % (0.0-0.0); NUCLEATED RED BLOOD CELL 0.0 10*3/uL (0.0-0.0); PLATELET COUNT AUTOMATED 204 10*3/uL (130-400); RED CELL DISTRI WIDTH 15.9 % (0-14.5)
[2025-04-23 04:49] LABS: BUN 21 mg/dl (9-23); FREE T4 1.06 ng/dl (0.89-1.76); LDL CHOLESTEROL 141 mg/dL (9-159); SGPT/ALT 45 U/L (5-49)
[2025-04-23] MEDS ORDERED: NITROGLYCERIN 0.4 MG BOT SL ONE (08:20)
[2025-04-23] MEDS ORDERED: ASPIRIN ENTERIC COATED 81 MG TAB PO SCH (10:00)
[2025-04-23] MEDS ORDERED: METOPROLOL SUCCINATE XR 50 MG TAB PO SCH (10:00)
[2025-04-23] MEDS ORDERED: LISINOPRIL 10 MG TAB PO SCH (12:25)
[2025-04-23] MEDS ORDERED: HEPARIN SODIUM 250 ML IV SCH (14:50)
[2025-04-23] MEDS ORDERED: Dextrose/Nitroglycerin 250 ML IV SCH (15:00)
== END 2025-04-23 18:36 | disposition short-term general hospital (02) ==
LOC: ED 20:49 → EDHOLD 04-23 02:26
PROVIDERS: Internal Medicine; Student in an Organized Health Care Education/Training Program; ADMIT Student in an Organized Health Care Education/Training Program; ATTEND Student in an Organized Health Care Education/Training Program
DX: I25.110 Atherosclerotic heart disease of native coronary artery with unstable angina pectoris (principal); Z20.822 Contact with and (suspected) exposure to COVID-19; E87.8 Other disorders of electrolyte and fluid balance, not elsewhere classified; E83.51 Hypocalcemia; R74.01 Elevation of levels of liver transaminase levels; K76.0 Fatty (change of) liver, not elsewhere classified; E78.2 Mixed hyperlipidemia; E03.9 Hypothyroidism, unspecified; M10.9 Gout, unspecified; E66.9 Obesity, unspecified; Z68.37 Body mass index [BMI] 37.0-37.9, adult; F17.210 Nicotine dependence, cigarettes, uncomplicated; Z79.899 Other long term (current) drug therapy